=== PATIENT | male | born 1965 | race Caucasian/White ===

== ENCOUNTER 2020-10-17 13:49 | Inpatient (IN) | payer OTHER ==
[2020-10-17] MEDS ORDERED: Ondansetron 4 MG/2 ML SDV IV PRN (14:32)
--- NOTE | 2020-10-17 14:50 | PCM.HP.2 ---
H&P History of Present Illness - General Date of Service: 10/17/20 Admit Problem/Dx: Admission Diagnosis/Problem Admission Diagnosis/Problem Hypoxia Source of Information: Patient, EMS Notes Reviewed, Old Records, Provider, RN, RN Notes Reviewed History Limitations: Reports: No Limitations - History of Present Illness Initial Comments - Free Text/Narative: This is a 55-year-old male who presents to us after being transferred from [facility] and is a direct admission. Patient reports that he had similar symptoms around [facility] and that they had resolved but then returned very rapidly. That time he was never tested for Covid-19. He reports 102 degree fever along with backaches and shortness of breath. He reports his is also Covid positive. In the [place] ER he is 87% on room air. Saturations are increased to 91% on 2 L. Temp was 100.7. Pulse 87. Respirations 22. Blood pressure 142/71. Labs were obtained in [place] showing a WBC of 7.5. Hemoglobin 16.5. Platelets are 168,000. Neutrophils 5.8. Glucose is 88. Sodium 138. Potassium was low at 3.4. Chloride was 97. CO2 was 26. Anion gap is 18. BUN is 13. Creatinine 1.0. Calcium is 8.8. Bilirubin 0.6. Alkaline phosphatase is 84. ALT is 91. AST is 81. Protein is 7.3. Albumin 4.0. EGFR is greater than 90. PT is 13.3. INR 1.0. Blood culture was obtained and is pending. Influenza a and B were both negative. COVID-19 screen is positive. Was given 1 g IV Rocephin and 500 mg azithromycin tablets. Is given 20 mEq potassium chloride. He is also given the 200 mg loading dose of remdesivir and a 6 mg dose of dexamethasone. He started on Lovenox 40 mg and was given a 1 L bolus. Chest x-ray is obtained showing "radiographic findings consistent with Covid pneumonia. Correlation is recommended." Has a history of type II DM, hypertension, sleep apnea with CPAP use. He is a former smoker. He is admitted for treatment of his acute respiratory failure with hypoxia and pneumonia due to COVID-19. - Related Data Allergies/Adverse Reactions: Allergies Allergy/AdvReac Type Severity Reaction Status Date / Time No Known Allergies Allergy Verified 10/17/20 15:58 H&P Review of Systems - Review of Systems: Review Of Systems: See Below General: Reports: Fever, Chills, Malaise, Weakness, Fatigue, Decreased Appetite HEENT: Reports: Sinus Congestion, Sore Throat. Denies: Headaches Pulmonary: Reports: Shortness of Breath, Wheezing, Cough. Denies: Pleuritic Chest Pain, Sputum Cardiovascular: Reports: No Symptoms, Dyspnea on Exertion. Denies: Chest Pain, Palpitations, Orthopnea, Edema, Lightheadedness Gastrointestinal: Reports: No Symptoms. Denies: Abdominal Pain, Constipation, Diarrhea, Nausea, Vomiting Genitourinary: Reports: No Symptoms. Denies: Pain Musculoskeletal: Reports: No Symptoms Skin: Reports: No Symptoms. Denies: Cyanosis Psychiatric: Reports: No Symptoms. Denies: Confusion Neurological: Reports: No Symptoms. Denies: Confusion, Numbness, Tingling, Difficulty Walking, Weakness, Gait Disturbance Hematologic/Lymphatic: Reports: No Symptoms Immunologic: Reports: No Symptoms Exam - Exam Exam: See Below - Exam Quality Assessment: Supplemental Oxygen, DVT Prophylaxis General: Alert, Oriented, Cooperative. No: Mild Distress HEENT: Conjunctiva Clear, EACs Clear, Mucosa Moist & [place] Neck: Supple, Trachea Midline Lungs: Normal Respiratory Effort, Decreased Breath Sounds, Rales Cardiovascular: Regular Rate, Regular Rhythm GI/Abdominal Exam: Normal Bowel Sounds, Soft, Non-Tender, No Distention (Male) Exam: Deferred Rectal (Males) Exam: Deferred Back Exam: Normal Inspection, Full Range of Motion Extremities: Normal Inspection, Normal Range of Motion, Non-Tender, No Pedal Edema, Normal Capillary Refill Peripheral Pulses: 3+: Radial (L), Radial (R), Dorsalis Pedis (L), Dorsalis Pedis (R) Skin: Warm, Dry, Intact Neurological: Cranial Nerves Intact (Grossly ) Neuro Extensive - Mental Status: Alert, Oriented x3, Normal Mood/Affect, Memory Intact - Problem List (1) Pneumonia due to 2019 novel coronavirus SNOMED Code(s): 723257470549162872 ICD Code: U07.1 - COVID-19; J12.89 - OTHER VIRAL PNEUMONIA Status: Acute Priority: High Current Visit: Yes (2) Type II diabetes mellitus SNOMED Code(s): 95760633 ICD Code: E11.9 - TYPE 2 DIABETES MELLITUS WITHOUT COMPLICATIONS Status: Chronic Priority: Medium Current Visit: Yes Qualifiers: Diabetes mellitus intermodal truck driver insulin use: with intermodal truck driver use Diabetes mellitus complication status: without complication Qualified Code(s): E11.9 - Type 2 diabetes mellitus without complications; Z79.4 - manager intermediate (current) use of insulin (3) FREIDA on CPAP SNOMED Code(s): 51467827 ICD Code: G47.33 - OBSTRUCTIVE SLEEP APNEA (ADULT) (PEDIATRIC); Z99.89 - DEPENDENCE ON OTHER ENABLING MACHINES AND DEVICES Status: Chronic Priority: Medium Current Visit: No (4) Hypertension SNOMED Code(s): 56968276 ICD Code: I10 - ESSENTIAL (PRIMARY) HYPERTENSION Status: Chronic Priority: Medium Current Visit: No Qualifiers: Hypertension type: unspecified Qualified Code(s): I10 - Essential (primary) hypertension (5) Hypoxia SNOMED Code(s): 009769749 ICD Code: R09.02 - HYPOXEMIA Status: Acute Priority: High Current Visit: Yes (6) Hypokalemia SNOMED Code(s): 56256448 ICD Code: E87.6 - HYPOKALEMIA Status: Acute Priority: High Current Visit: Yes (7) Anxiety SNOMED Code(s): 72065910 ICD Code: F41.9 - ANXIETY DISORDER, UNSPECIFIED Status: Chronic Priority: Medium Current Visit: No (8) GERD (gastroesophageal reflux disease) SNOMED Code(s): 259295531 ICD Code: K21.9 - GASTRO-ESOPHAGEAL REFLUX DISEASE WITHOUT ESOPHAGITIS Status: Chronic Priority: Medium Current Visit: No Qualifiers: Esophagitis presence: esophagitis presence not specified Qualified Code(s): K21.9 - Gastro-esophageal reflux disease without esophagitis Problem List Initiated/Reviewed/Updated: Yes Orders Last 24hrs: Active Orders 24 hr Category Date Time Status Patient Status [ADT] Routine ADT 10/17/20 14:33 Ordered Blood Glucose Check, Bedside [RC] QIDACANDBED Care 10/17/20 14:41 Ordered CPAP Noctural Home [RT BiPAP/CPAP] [RC] ASDIRECTED Care 10/17/20 14:40 Ordered Cardiac Monitoring [RC] CONTINUOUS Care 10/17/20 14:33 Ordered Height and Weight [RC] DAILY Care 10/17/20 14:32 Ordered Intake and Output [RC] QSHIFT Care 10/17/20 14:33 Ordered Nurse Communication: Isolation [RC] ASDIRECTED Care 10/17/20 14:35 Ordered Oxygen Therapy [RC] PRN Care 10/17/20 14:33 Ordered Pulse Oximetry [RC] CONTINUOUS Care 10/17/20 14:33 Ordered RT Incentive Spirometry [RC] ASDIRECTED Care 10/17/20 14:35 Ordered Up With Assistance [RC] ASDIRECTED Care 10/17/20 14:32 Ordered VTE/DVT Education [RC] PER UNIT ROUTINE Care 10/17/20 14:33 Ordered Vital Signs [RC] Q4H Care 10/17/20 14:33 Ordered OT Evaluation and Treatment [CONS] Routine Cons 10/17/20 14:32 Ordered PT Evaluation and Treatment [CONS] Routine Cons 10/17/20 14:32 Ordered Respiratory Care Assess and Treatment [CONS] Routine Cons 10/17/20 14:32 Ordered ADA Diabetic [[employer] Diet] [DIET Diet 10/17/20 Lunch Ordered ] A1C [GLYCOSYLATED HEMOGLOBIN,HGBA1C] [CHEM] Routine Lab 10/17/20 14:42 Ordered CBC WITH AUTO DIFF [HEME] AM Lab 10/18/20 05:11 Ordered CBC WITH AUTO DIFF [HEME] AM Lab 10/19/20 05:11 Ordered CBC WITH AUTO DIFF [HEME] AM Lab 10/20/20 05:11 Ordered CBC WITH AUTO DIFF [HEME] AM Lab 10/21/20 05:11 Ordered CMP [COMPREHENSIVE METABOLIC PN,CMP] [CHEM] AM Lab 10/18/20 05:11 Ordered CMP [COMPREHENSIVE METABOLIC PN,CMP] [CHEM] AM Lab 10/19/20 05:11 Ordered CMP [COMPREHENSIVE METABOLIC PN,CMP] [CHEM] AM Lab 10/20/20 05:11 Ordered CMP [COMPREHENSIVE METABOLIC PN,CMP] [CHEM] AM Lab 10/21/20 05:11 Ordered DD [D-DIMER QUANTITATIVE] [COAG] Routine Lab 10/17/20 14:39 Ordered FERRITIN [CHEM] Routine Lab 10/17/20 14:39 Ordered LACTATE DEHYDROGENASE,LDH [CHEM] Routine Lab 10/17/20 14:39 Ordered MAGNESIUM [CHEM] AM Lab 10/18/20 05:11 Ordered MAGNESIUM [CHEM] AM Lab 10/19/20 05:11 Ordered MAGNESIUM [CHEM] AM Lab 10/20/20 05:11 Ordered MAGNESIUM [CHEM] AM Lab 10/21/20 05:11 Ordered PHOSPHORUS [CHEM] AM Lab 10/18/20 05:11 Ordered PROCALCITONIN [REF] Routine Lab 10/17/20 14:39 Ordered Acetaminophen [TylenoL] Med 10/17/20 14:32 Ordered 650 mg PO Q4H PRN Azithromycin [Zithromax] Med 10/18/20 11:30 Ordered 500 mg PO DAILY Famotidine [Pepcid] Med 10/17/20 21:00 Ordered 20 mg PO BID Insulin Lispro [HumaLOG] Med 10/17/20 17:00 Ordered See Protocol SUBCUT QIDACANDBED Ondansetron [Zofran] Med 10/17/20 14:32 Ordered 4 mg IV Q6H PRN Remdesivir 100 mg Med 10/18/20 09:00 Ordered Sodium Chloride 0.9% [Normal Saline] 100 ml IV DAILY cefTRIAXone [Rocephin] 2 gm Med 10/18/20 11:30 Ordered Sodium Chloride 0.9% [Normal Saline] 100 ml IV Q24H dexAMETHasone Med 10/18/20 09:00 Ordered 6 mg PO DAILY Isolation [COMM] Stat Oth 10/17/20 14:35 Ordered RT Acapella [RESPCARE] Routine Oth 10/17/20 14:35 Ordered Medication Orders Acetaminophen (Tylenol) 650 mg PO Q4H PRN PRN Reason: Pain (Mild 1-3)/fever Azithromycin (Zithromax) 500 mg PO DAILY [facility] Stop: 10/19/20 09:01 Dexamethasone (Dexamethasone) 6 mg PO DAILY [facility] Stop: 10/26/20 09:01 Famotidine (Pepcid) 20 mg PO BID [facility] Remdesivir 100 mg/ Sodium (Chloride) 100 mls @ 100 mls/hr IV DAILY [facility] Stop: 10/21/20 09:59 Ceftriaxone Sodium 2 gm/ (Sodium Chloride) 100 mls @ 200 mls/hr IV Q24H [facility] Stop: 10/21/20 11:59 Insulin Human Lispro (Humalog) 0 unit SUBCUT QIDACANDBED [facility]; Protocol Ondansetron HCl (Zofran) 4 mg IV Q6H PRN PRN Reason: Nausea/Vomiting Assessment/Plan Comment:: Assessment - Day of admission - 10/17/2020 * 55 yo male who was direct admit from [place] ED with COVID-19 PNA * Reports symptoms around Thanksgiving that resolved and now returned. Was not tested then. * Reports SOB, back aches, fever, and decreased appetite. Fevers of 102-104 * Oxygen saturations of 87% in ED. 90's on 4L now * Given 200 mg remdesivir, 6mg dexamethasone, 1gm rocephin, 500mg azithromycin, 40mg lovenox, and 1L fluid bolus in [facility] ED * Potassium 20 mEq supplemented in [facility] * Utilized CPAP for FREIDA - has been using more during day due to SOB * Labs from [facility] ED: * WBC 7.50 * Hgb 16.5 * Plt 168 * Glucose 88 * Sodium 138 * Potassium 3.4 * Chloride 97 * Anion gap 18 * BUN 13 * Creatinine 1.0 * GFR >90 * Bilirubin 0.6 * Alk phos 84 * ALT 91 * AST 81 * Protein 7.3 * Albumin 4.0 * PT/INR 13.3/1.0 * Blood cultures pending * CRP 22.4 * Influenza A/B - negative * SARS-COV-2 RNA - positive PLAN: Pneumonia due to 2019 novel coronavirus Hypoxia * Remdesivir - day 11/11 * Dexamethasone 6mg - day 11/16 * Rocephin 2gm - day 11/11 * Azithromycin 500mg - Day 11/09 * IS/Acapella * Encourage proning * RT consultation * PRN Albuterol via [facility] * Oxygen as needed - goal saturations of 88-94% * Encourage ambulation around room * Airborne/droplet precautions * PT/OT eval * Telemetry/continuous pulse oximeter * Obtain D-Dimer, Procalcitonin, Ferritin, LDH, Vitamin D * Monitor daily labs * Obtain baseline 12-lead EKG Type II diabetes mellitus * Hold home metformin * Sliding scale insulin * Obtain A1C * Diabetic diet * Monitor need for insulin adjustments as patient is on steroids * Start Alogliptin 12.5mg daily FREIDA on CPAP * Patient has home CPAP * Continue CPAP at bedtime and when napping Hypertension Anxiety GERD * Home medications as ordered Code status: Full code PCP: None locally Social: Lives with who also has COVID-19 DVT prophylaxis: Lovenox Disposition: Admit patient to M/S/P on telemetry for COVID-19/hypoxia treatment Prognosis: Good Anticipated LOS >96 Hr due to COVID-19 treatment duration - Mortality Measure Prognosis:: Good
[2020-10-17] MEDS ORDERED: Albuterol 6.7 GM Inhaler INH PRN (14:52)
[2020-10-17 15:42] LABS: HEMOGLOBIN A1C 8.2 % (4.50-6.20)
[2020-10-17] MEDS ORDERED: LORazepam 1 MG Tab PO PRN (17:17)
[2020-10-17] MEDS: Acetaminophen 325 MG Tab PO PRN (18:57)
[2020-10-17] MEDS ORDERED: CETIRIZINE PO SCH (21:00)
[2020-10-17] MEDS: Metoprolol Tartrate 100 MG Tab PO SCH (22:07)
[2020-10-17] MEDS: diphenhydrAMINE 50 MG Cap PO SCH (22:07)
[2020-10-17] MEDS: Famotidine 20 MG Tab PO SCH (22:09)
[2020-10-18] MEDS: Aspirin 325 MG Tab.EC PO SCH (08:20)
[2020-10-18] MEDS: Dexamethasone 4 MG Tab PO SCH (08:20)
[2020-10-18] MEDS: Hydrochlorothiazide 25 MG Tab PO SCH (08:21)
[2020-10-18] MEDS: amLODIPine 10 MG Tab PO SCH (08:21)
[2020-10-18] MEDS: Metoprolol Tartrate 100 MG Tab PO SCH ×2 (08:22→21:35)
[2020-10-18] MEDS: Rosuvastatin 10 MG Tab PO SCH (08:22)
[2020-10-18] MEDS: Multivitamins,Therapeutic Tab PO SCH (08:23)
[2020-10-18] MEDS: Saccharomyces Boulardii (Probiotic) 250 MG Cap PO SCH (08:23)
[2020-10-18] MEDS: Famotidine 20 MG Tab PO SCH ×2 (08:24→21:35)
--- NOTE | 2020-10-18 08:24 | PCM.PN ---
- General Info Date of Service: 10/18/20 Admission Dx/Problem (Free Text): Admission Diagnosis/Problem Admission Diagnosis/Problem Hypoxia Subjective Update: In to se Baumann. He reports he is doing very well. He has been up ambulating around the room and utilizing his IS and acapella. His blood glucose readings were a bit high today so will increase his lantus and monitor. He is down to 4L via NC. Continue current treatment plan. Functional Status: Reports: Pain Controlled, Tolerating Diet, Ambulating, Urinating, Incentive Spirometry, Other (acapella ). Denies: New Symptoms - Review of Systems General: Reports: No Symptoms. Denies: Fever, Weakness, Fatigue, Malaise, Chills HEENT: Reports: No Symptoms. Denies: Headaches, Sore Throat Pulmonary: Reports: Shortness of Breath, Cough. Denies: Pleuritic Chest Pain, Sputum, Wheezing Cardiovascular: Reports: No Symptoms, Dyspnea on Exertion. Denies: Chest Pain, Palpitations, Edema Gastrointestinal: Reports: No Symptoms. Denies: Abdominal Pain, Constipation, Diarrhea, Nausea, Vomiting Genitourinary: Reports: No Symptoms. Denies: Pain Musculoskeletal: Reports: No Symptoms Skin: Reports: No Symptoms. Denies: Cyanosis Neurological: Reports: No Symptoms. Denies: Confusion, Difficulty Walking, Gait Disturbance Psychiatric: Reports: No Symptoms - Patient Data Vitals - Most Recent: Last Vital Signs Temp 98.8 F 10/18/20 05:11 Pulse 65 10/18/20 05:11 Resp 16 10/18/20 05:11 BP 140/98 H 10/18/20 05:11 Pulse Ox 95 10/18/20 05:11 Weight - Most Recent: 263 lb I&O - Last 24 Hours: Intake & Output 10/17/20 10/18/20 10/18/20 22:59 06:59 14:59 Intake Total 480 2400 Output Total 2500 Balance 480 -100 Lab Results Last 24 Hours: Laboratory Results - last 24 hr 10/17/20 10/17/20 10/17/20 Range/Units 15:15 15:15 15:15 WBC (4.23-9.07) K/mm3 RBC (4.63-6.08) M/mm3 Hgb (13.7-17.5) gm/dl Hct (40.1-51.0) % MCV (79.0-92.2) fl MCH (25.7-32.2) pg MCHC (32.2-35.5) g/dl RDW Std Deviation (35.1-43.9) fL Plt Count (163-337) K/mm3 MPV (9.4-12.3) fl Neut % (Auto) (34.0-67.9) % Lymph % (Auto) (21.8-53.1) % Iron % (Auto) (5.3-12.2) % Eos % (Auto) (0.8-7.0) Baso % (Auto) (0.1-1.2) % Neut # (Auto) (1.78-5.38) K/mm3 Lymph # (Auto) (1.32-3.57) K/mm3 Iron # (Auto) (0.30-0.82) K/mm3 Eos # (Auto) (0.04-0.54) K/mm3 Baso # (Auto) (0.01-0.08) K/mm3 Fibrinogen (187-446) mg/dL D-Dimer, Quantitative 0.44 (0.19-0.50) mg/L Sodium (136-145) mEq/L Potassium (3.5-5.1) mEq/L Chloride (98-107) mEq/L Carbon Dioxide (21-32) mEq/L Anion Gap (5-15) BUN (7-18) mg/dL Creatinine (0.7-1.3) mg/dL Est Cr Clr Drug Dosing mL/min Estimated GFR (MDRD) (>60) mL/min BUN/Creatinine Ratio (14-18) Glucose (74-106) mg/dL POC Glucose (70-105) mg/dL Hemoglobin A1c (4.50-6.20) % Calcium (8.5-10.1) mg/dL Phosphorus (2.6-4.7) mg/dL Magnesium (1.8-2.4) mg/dl Ferritin 212 (26-388) ng/ml Total Bilirubin (0.2-1.0) mg/dL AST (15-37) U/L ALT (16-63) U/L Alkaline Phosphatase (46-116) U/L Lactate Dehydrogenase 267 H (85-227) U/L Troponin I (0.00-0.056) ng/mL NT-Pro-B Natriuret Pep (0-125) pg/mL Total Protein (6.4-8.2) g/dl Albumin (3.4-5.0) g/dl Globulin gm/dL Albumin/Globulin Ratio (1-2) Vitamin D 25-Hydroxy (30.0-100.0) ng/ml 10/17/20 10/17/20 10/17/20 Range/Units 15:15 15:15 21:48 WBC (4.23-9.07) K/mm3 RBC (4.63-6.08) M/mm3 Hgb (13.7-17.5) gm/dl Hct (40.1-51.0) % MCV (79.0-92.2) fl MCH (25.7-32.2) pg MCHC (32.2-35.5) g/dl RDW Std Deviation (35.1-43.9) fL Plt Count (163-337) K/mm3 MPV (9.4-12.3) fl Neut % (Auto) (34.0-67.9) % Lymph % (Auto) (21.8-53.1) % Iron % (Auto) (5.3-12.2) % Eos % (Auto) (0.8-7.0) Baso % (Auto) (0.1-1.2) % Neut # (Auto) (1.78-5.38) K/mm3 Lymph # (Auto) (1.32-3.57) K/mm3 Iron # (Auto) (0.30-0.82) K/mm3 Eos # (Auto) (0.04-0.54) K/mm3 Baso # (Auto) (0.01-0.08) K/mm3 Fibrinogen (187-446) mg/dL D-Dimer, Quantitative (0.19-0.50) mg/L Sodium (136-145) mEq/L Potassium (3.5-5.1) mEq/L Chloride (98-107) mEq/L Carbon Dioxide (21-32) mEq/L Anion Gap (5-15) BUN (7-18) mg/dL Creatinine (0.7-1.3) mg/dL Est Cr Clr Drug Dosing mL/min Estimated GFR (MDRD) (>60) mL/min BUN/Creatinine Ratio (14-18) Glucose (74-106) mg/dL POC Glucose 230 H (70-105) mg/dL Hemoglobin A1c 8.20 H (4.50-6.20) % Calcium (8.5-10.1) mg/dL Phosphorus (2.6-4.7) mg/dL Magnesium (1.8-2.4) mg/dl Ferritin (26-388) ng/ml Total Bilirubin (0.2-1.0) mg/dL AST (15-37) U/L ALT (16-63) U/L Alkaline Phosphatase (46-116) U/L Lactate Dehydrogenase (85-227) U/L Troponin I (0.00-0.056) ng/mL NT-Pro-B Natriuret Pep (0-125) pg/mL Total Protein (6.4-8.2) g/dl Albumin (3.4-5.0) g/dl Globulin gm/dL Albumin/Globulin Ratio (1-2) Vitamin D 25-Hydroxy 30.6 (30.0-100.0) ng/ml 10/18/20 10/18/20 10/18/20 Range/Units 04:22 04:22 04:22 WBC 7.70 (4.23-9.07) K/mm3 RBC 5.48 (4.63-6.08) M/mm3 Hgb 15.3 (13.7-17.5) gm/dl Hct 47.0 (40.1-51.0) % MCV 85.8 (79.0-92.2) fl MCH 27.9 (25.7-32.2) pg MCHC 32.6 (32.2-35.5) g/dl RDW Std Deviation 43.2 (35.1-43.9) fL Plt Count 177 (163-337) K/mm3 MPV 10.3 (9.4-12.3) fl Neut % (Auto) 77.2 H (34.0-67.9) % Lymph % (Auto) 12.2 L (21.8-53.1) % Iron % (Auto) 10.4 (5.3-12.2) % Eos % (Auto) 0 L (0.8-7.0) Baso % (Auto) 0.1 (0.1-1.2) % Neut # (Auto) 5.94 H (1.78-5.38) K/mm3 Lymph # (Auto) 0.94 L (1.32-3.57) K/mm3 Iron # (Auto) 0.80 (0.30-0.82) K/mm3 Eos # (Auto) 0.00 L (0.04-0.54) K/mm3 Baso # (Auto) 0.01 (0.01-0.08) K/mm3 Fibrinogen (187-446) mg/dL D-Dimer, Quantitative (0.19-0.50) mg/L Sodium 137 (136-145) mEq/L Potassium 3.7 (3.5-5.1) mEq/L Chloride 100 (98-107) mEq/L Carbon Dioxide 29 (21-32) mEq/L Anion Gap 11.7 (5-15) BUN 15 (7-18) mg/dL Creatinine 0.9 (0.7-1.3) mg/dL Est Cr Clr Drug Dosing 96.45 mL/min Estimated GFR (MDRD) > 60 (>60) mL/min BUN/Creatinine Ratio 16.7 (14-18) Glucose 197 H (74-106) mg/dL POC Glucose (70-105) mg/dL Hemoglobin A1c (4.50-6.20) % Calcium 8.5 (8.5-10.1) mg/dL Phosphorus 4.2 (2.6-4.7) mg/dL Magnesium 2.1 (1.8-2.4) mg/dl Ferritin (26-388) ng/ml Total Bilirubin 0.5 (0.2-1.0) mg/dL AST 53 H (15-37) U/L ALT 82 H (16-63) U/L Alkaline Phosphatase 71 (46-116) U/L Lactate Dehydrogenase (85-227) U/L Troponin I < 0.017 (0.00-0.056) ng/mL NT-Pro-B Natriuret Pep 212 H (0-125) pg/mL Total Protein 6.9 (6.4-8.2) g/dl Albumin 2.9 L (3.4-5.0) g/dl Globulin 4.0 gm/dL Albumin/Globulin Ratio 0.7 L (1-2) Vitamin D 25-Hydroxy (30.0-100.0) ng/ml 10/18/20 10/18/20 Range/Units 04:22 05:16 WBC (4.23-9.07) K/mm3 RBC (4.63-6.08) M/mm3 Hgb (13.7-17.5) gm/dl Hct (40.1-51.0) % MCV (79.0-92.2) fl MCH (25.7-32.2) pg MCHC (32.2-35.5) g/dl RDW Std Deviation (35.1-43.9) fL Plt Count (163-337) K/mm3 MPV (9.4-12.3) fl Neut % (Auto) (34.0-67.9) % Lymph % (Auto) (21.8-53.1) % Iron % (Auto) (5.3-12.2) % Eos % (Auto) (0.8-7.0) Baso % (Auto) (0.1-1.2) % Neut # (Auto) (1.78-5.38) K/mm3 Lymph # (Auto) (1.32-3.57) K/mm3 Iron # (Auto) (0.30-0.82) K/mm3 Eos # (Auto) (0.04-0.54) K/mm3 Baso # (Auto) (0.01-0.08) K/mm3 Fibrinogen 613 H (187-446) mg/dL D-Dimer, Quantitative (0.19-0.50) mg/L Sodium (136-145) mEq/L Potassium (3.5-5.1) mEq/L Chloride (98-107) mEq/L Carbon Dioxide (21-32) mEq/L Anion Gap (5-15) BUN (7-18) mg/dL Creatinine (0.7-1.3) mg/dL Est Cr Clr Drug Dosing mL/min Estimated GFR (MDRD) (>60) mL/min BUN/Creatinine Ratio (14-18) Glucose (74-106) mg/dL POC Glucose 196 H (70-105) mg/dL Hemoglobin A1c (4.50-6.20) % Calcium (8.5-10.1) mg/dL Phosphorus (2.6-4.7) mg/dL Magnesium (1.8-2.4) mg/dl Ferritin (26-388) ng/ml Total Bilirubin (0.2-1.0) mg/dL AST (15-37) U/L ALT (16-63) U/L Alkaline Phosphatase (46-116) U/L Lactate Dehydrogenase (85-227) U/L Troponin I (0.00-0.056) ng/mL NT-Pro-B Natriuret Pep (0-125) pg/mL Total Protein (6.4-8.2) g/dl Albumin (3.4-5.0) g/dl Globulin gm/dL Albumin/Globulin Ratio (1-2) Vitamin D 25-Hydroxy (30.0-100.0) ng/ml Med Orders - Current: Current Medications Acetaminophen (Tylenol) 650 mg PO Q4H PRN PRN Reason: Pain (Mild 1-3)/fever Last Admin: 10/17/20 18:57 Dose: 650 mg Documented by: Albuterol (Proventil Hfa) 0 gm INH Q2H PRN PRN Reason: Shortness of Breath Alogliptin Benzoate (Alogliptin) 12.5 mg PO DAILY [facility] Amlodipine Besylate (Norvasc) 10 mg PO DAILY [facility] Aspirin (Ecotrin) 325 mg PO DAILY [facility] Azithromycin (Zithromax) 500 mg PO DAILY@1130 [facility] Stop: 10/19/20 11:31 Dexamethasone (Dexamethasone) 6 mg PO DAILY [facility] Stop: 10/26/20 09:01 Diphenhydramine HCl (Benadryl) 100 mg PO BEDTIME [facility] Last Admin: 10/17/20 22:07 Dose: 100 mg Documented by: Enoxaparin Sodium (Lovenox) 40 mg SUBCUT DAILY [facility] Famotidine (Pepcid) 20 mg PO BID [facility] Last Admin: 10/17/20 22:09 Dose: 20 mg Documented by: Hydrochlorothiazide (Hydrochlorothiazide) 25 mg PO DAILY [facility] Remdesivir 100 mg/ Sodium (Chloride) 100 mls @ 100 mls/hr IV DAILY [facility] Stop: 10/21/20 09:59 Ceftriaxone Sodium 2 gm/ (Sodium Chloride) 100 mls @ 200 mls/hr IV Q24H [facility] Stop: 10/21/20 11:59 Influenza Virus Vaccine (Fluzone Quad Syringe) 60 mcg IM .ONCE ONE Stop: 10/21/20 12:01 Insulin Glargine (Lantus) 20 unit SUBCUT BID [facility] Insulin Human Lispro (Humalog) 0 unit SUBCUT QIDACANDBED [facility]; Protocol Last Admin: 10/17/20 22:09 Dose: 4 units Documented by: Lorazepam (Ativan) 1 mg PO QID PRN PRN Reason: Anxiety Metoprolol Tartrate (Lopressor) 100 mg PO BID [facility] Last Admin: 10/17/20 22:07 Dose: 100 mg Documented by: Multivitamins (Thera) 1 each PO DAILY [facility] Non-Formulary Medication (Cetirizine Hcl [Zyrtec]) 25 mg PO BEDTIME [facility] Ondansetron HCl (Zofran) 4 mg IV Q6H PRN PRN Reason: Nausea/Vomiting Rosuvastatin Calcium (Crestor) 10 mg PO DAILY [facility] Saccharomyces Boulardii (Florastor) 250 mg PO DAILY [facility] Discontinued Medications Influenza Virus Vaccine (Pharmacy To Dose - Influenza Vaccine) 1 each IM ONETIME ONE Stop: 10/17/20 15:58 - Exam Quality Assessment: Supplemental Oxygen (4L via NC ), DVT Prophylaxis. No: Urine Catheter General: Alert, Oriented, Cooperative, No Acute Distress HEENT: Pupils Equal, Pupils Reactive, Mucous Membr. Moist/Dyess Neck: Supple, Trachea Midline Lungs: Normal Respiratory Effort, Decreased Breath Sounds. No: Crackles, Rhonchi, Wheezing Cardiovascular: Regular Rate, Regular Rhythm GI/Abdominal Exam: Normal Bowel Sounds, Soft, Non-Tender, No Distention (Male) Exam: Deferred Back Exam: Normal Inspection, Full Range of Motion Extremities: Normal Inspection, Normal Range of Motion, Non-Tender, No Pedal Edema Skin: Warm, Dry, Intact Neurological: No New Focal Deficit Psy/Mental Status: Alert, Normal Affect, Normal Mood Sepsis Event Note - Evaluation Sepsis Screening Result: No Definite Risk - Focused Exam Vital Signs: Vital Signs Temp Pulse Resp BP Pulse Ox 10/18/20 05:11 98.8 F 65 16 140/98 H 95 10/18/20 01:58 98.2 F 64 16 101/71 97 10/17/20 22:09 72 118/58 L 96 10/17/20 22:07 75 118/58 L - Problem List & Annotations (1) Pneumonia due to 2019 novel coronavirus SNOMED Code(s): 527592511818352112 Code(s): U07.1 - COVID-19; J12.89 - OTHER VIRAL PNEUMONIA Status: Acute Priority: High Current Visit: Yes (2) Type II diabetes mellitus SNOMED Code(s): 04562867 Code(s): E11.9 - TYPE 2 DIABETES MELLITUS WITHOUT COMPLICATIONS Status: Chronic Priority: Medium Current Visit: Yes Qualifiers: Diabetes mellitus termite control service representative insulin use: with half-way use Diabetes mellitus complication status: without complication Qualified Code(s): E11.9 - Type 2 diabetes mellitus without complications; Z79.4 - skilled nursing (current) use of insulin (3) FREIDA on CPAP SNOMED Code(s): 51397384 Code(s): G47.33 - OBSTRUCTIVE SLEEP APNEA (ADULT) (PEDIATRIC); Z99.89 - DEPENDENCE ON OTHER ENABLING MACHINES AND DEVICES Status: Chronic Priority: Medium Current Visit: No (4) Hypertension SNOMED Code(s): 28171067 Code(s): I10 - ESSENTIAL (PRIMARY) HYPERTENSION Status: Chronic Priority: Medium Current Visit: No Qualifiers: Hypertension type: unspecified Qualified Code(s): I10 - Essential (primary) hypertension (5) Hypoxia SNOMED Code(s): 202328298 Code(s): R09.02 - HYPOXEMIA Status: Acute Priority: High Current Visit: Yes (6) Hypokalemia SNOMED Code(s): 79237634 Code(s): E87.6 - HYPOKALEMIA Status: Acute Priority: High Current Visit: Yes (7) Anxiety SNOMED Code(s): 40956905 Code(s): F41.9 - ANXIETY DISORDER, UNSPECIFIED Status: Chronic Priority: Medium Current Visit: No (8) GERD (gastroesophageal reflux disease) SNOMED Code(s): 412103986 Code(s): K21.9 - GASTRO-ESOPHAGEAL REFLUX DISEASE WITHOUT ESOPHAGITIS Status: Chronic Priority: Medium Current Visit: No Qualifiers: Esophagitis presence: esophagitis presence not specified Qualified Code(s): K21.9 - Gastro-esophageal reflux disease without esophagitis - Problem List Review Problem List Initiated/Reviewed/Updated: Yes - My Orders Last 24 Hours: My Active Orders 10/17/20 Lunch ADA Diabetic [[employer] Diet] [DIET] 10/17/20 14:32 Height and Weight [RC] 04 Up With Assistance [RC] BID OT Evaluation and Treatment [CONS] Routine PT Evaluation and Treatment [CONS] Routine Respiratory Care Assess and Treatment [CONS] Routine Acetaminophen [TylenoL] 650 mg PO Q4H PRN Ondansetron [Zofran] 4 mg IV Q6H PRN 10/17/20 14:33 Patient Status [ADT] Routine Intake and Output [RC] 04,16 Oxygen Therapy [RC] PRN Pulse Oximetry [RC] CONTINUOUS VTE/DVT Education [RC] PER UNIT ROUTINE Vital Signs [RC] Q4H 10/17/20 14:35 RT Incentive Spirometry [RC] ASDIRECTED Isolation [COMM] Stat RT Acapella [RESPCARE] Routine 10/17/20 14:40 CPAP Noctural Home [RT BiPAP/CPAP] [RC] 2100 10/17/20 14:41 Blood Glucose Check, Bedside [RC] QIDACANDBED 10/17/20 14:51 Positioning, Patient [RC] QSHIFT 10/17/20 14:52 Albuterol [Proventil HFA] See Dose Instructions INH Q2H PRN 10/17/20 15:15 PROCALCITONIN [REF] Routine 10/17/20 17:00 Insulin Lispro [HumaLOG] See Protocol SUBCUT QIDACANDBED 10/17/20 17:17 LORazepam [Ativan] 1 mg PO QID PRN 10/17/20 21:00 Cetirizine HCl [Zyrtec] 25 mg PO BEDTIME Famotidine [Pepcid] 20 mg PO BID Metoprolol Tartrate [Lopressor] 100 mg PO BID diphenhydrAMINE [Benadryl] 100 mg PO BEDTIME 10/18/20 09:00 Alogliptin Benzoate [Alogliptin] 12.5 mg PO DAILY Aspirin [Ecotrin] 325 mg PO DAILY Enoxaparin [Lovenox] 40 mg SUBCUT DAILY Insulin Glarg,Human.Rec.Analog [LantUS] 20 unit SUBCUT BID Multivitamins,Therapeutic [Thera] 1 each PO DAILY Remdesivir 100 mg Sodium Chloride 0.9% [Normal Saline] 100 ml IV DAILY Rosuvastatin [Crestor] 10 mg PO DAILY Saccharomyces Boulardii [Florastor] 250 mg PO DAILY amLODIPine [Norvasc] 10 mg PO DAILY dexAMETHasone 6 mg PO DAILY hydroCHLOROthiazide 25 mg PO DAILY 10/18/20 11:30 Azithromycin [Zithromax] 500 mg PO DAILY@1130 cefTRIAXone [Rocephin] 2 gm Sodium Chloride 0.9% [Normal Saline] 100 ml IV Q24H 10/19/20 05:11 CBC WITH AUTO DIFF [HEME] AM CMP [COMPREHENSIVE METABOLIC PN,CMP] [CHEM] AM DD [D-DIMER QUANTITATIVE] [COAG] Q48H MAGNESIUM [CHEM] AM 10/20/20 05:11 CBC WITH AUTO DIFF [HEME] AM CMP [COMPREHENSIVE METABOLIC PN,CMP] [CHEM] AM MAGNESIUM [CHEM] AM 10/21/20 05:11 CBC WITH AUTO DIFF [HEME] AM CMP [COMPREHENSIVE METABOLIC PN,CMP] [CHEM] AM DD [D-DIMER QUANTITATIVE] [COAG] Q48H MAGNESIUM [CHEM] AM 10/23/20 05:11 DD [D-DIMER QUANTITATIVE] [COAG] Q48H - Assessment Assessment:: Assessment - Day of admission - 10/17/2020 * 55 yo male who was direct admit from [place] ED with COVID-19 PNA * Reports symptoms around gi that resolved and now returned. Was not tested then. * Reports SOB, back aches, fever, and decreased appetite. Fevers of 102-104 * Oxygen saturations of 87% in ED. 90's on 4L now * Given 200 mg remdesivir, 6mg dexamethasone, 1gm rocephin, 500mg azithromycin, 40mg lovenox, and 1L fluid bolus in [facility] ED * Potassium 20 mEq supplemented in [facility] * Utilized CPAP for FREIDA - has been using more during day due to SOB * Labs from [facility] ED: * WBC 7.50 * Hgb 16.5 * Plt 168 * Glucose 88 * Sodium 138 * Potassium 3.4 * Chloride 97 * Anion gap 18 * BUN 13 * Creatinine 1.0 * GFR >90 * Bilirubin 0.6 * Alk phos 84 * ALT 91 * AST 81 * Protein 7.3 * Albumin 4.0 * PT/INR 13.3/1.0 * Blood cultures pending * CRP 22.4 * Influenza A/B - negative * SARS-COV-2 RNA - positive 10/18/2020 * Down to 4L via NC * Reports he feels good but can tell he is SOB if he takes his oxygen off * Utilizing home CPAP while sleeping * Labs: * WBC 7.70 * HGB 15.3 * PLT 177 * Fibrinogen 613 * Potassium 3.7 * A1C 8.20 A * ST53, ALT 82, Alk Phos 71 * Troponin <0.017 * BNP 212 * Albumin 2.9 * Vitamin D 30.6 * LDH 267 * Ferritin 212 * D-dimer 0.44 * Procalcitonin 0.09 * Continuing current treatment plan - Plan Plan:: Pneumonia due to 2019 novel coronavirus Hypoxia * Remdesivir - day 12/12 * Dexamethasone 6mg - day 12/17 * Rocephin 2gm - day 12/12 * Azithromycin 500mg - Day 12/10 * IS/Acapella * Encourage proning * RT consultation * PRN Albuterol via [facility]I * Oxygen as needed - goal saturations of 88-94% * Encourage ambulation around room * Airborne/droplet precautions * PT/OT eval * Telemetry/continuous pulse oximeter * Monitor daily labs * Obtain baseline 12-lead EKG Type II diabetes mellitus * Hold home metformin * Sliding scale insulin * Diabetic diet * Monitor need for insulin adjustments as patient is on steroids * Start Alogliptin 12.5mg daily * Increase doing of LA insulin * Consult behavioral scientist FREIDA on CPAP * Patient has home CPAP * Continue CPAP at bedtime and when napping Hypertension Anxiety GERD * Home medications as ordered Code status: Full code PCP: None locally Social: Lives with who also has COVID-19 DVT prophylaxis: Lovenox Disposition: Admit patient to M/S/P on telemetry for COVID-19/hypoxia treatment Prognosis: Good Anticipated LOS >96 Hr due to COVID-19 treatment duration
[2020-10-18] MEDS: Enoxaparin 40 MG/0.4 ML Syringe SUBCUT SCH (08:27)
[2020-10-18] MEDS: REMDESIVIR 100 MG in Sodium Chloride 0.9% 100 ML IV SCH (08:58)
[2020-10-18] MEDS ORDERED: Insulin Glarg,Human.Rec.Analog 100 Unit/ML SUBCUT SCH (09:00)
[2020-10-18] MEDS: Acetaminophen 325 MG Tab PO PRN ×2 (09:02→21:35)
[2020-10-18] MEDS: Azithromycin 250 MG Tab PO SCH (12:24)
[2020-10-18] MEDS: cefTRIAXone 2 GM in Sodium Chloride 0.9% 100 ML IV SCH (12:24)
[2020-10-18] MEDS: diphenhydrAMINE 50 MG Cap PO SCH (21:35)
[2020-10-18] MEDS: Insulin Glarg,Human.Rec.Analog 100 Unit/ML SUBCUT SCH (21:36)
[2020-10-19] MEDS: Insulin Glarg,Human.Rec.Analog 100 Unit/ML SUBCUT SCH ×2 (08:09→21:29)
[2020-10-19] MEDS: Enoxaparin 40 MG/0.4 ML Syringe SUBCUT SCH (08:10)
[2020-10-19] MEDS: Dexamethasone 4 MG Tab PO SCH (08:11)
[2020-10-19] MEDS: Saccharomyces Boulardii (Probiotic) 250 MG Cap PO SCH (08:11)
[2020-10-19] MEDS: Famotidine 20 MG Tab PO SCH ×2 (08:11→21:28)
[2020-10-19] MEDS: Multivitamins,Therapeutic Tab PO SCH (08:12)
[2020-10-19] MEDS: Aspirin 325 MG Tab.EC PO SCH (08:12)
[2020-10-19] MEDS: Rosuvastatin 10 MG Tab PO SCH (08:12)
[2020-10-19] MEDS: Metoprolol Tartrate 100 MG Tab PO SCH ×2 (08:13→21:27)
[2020-10-19] MEDS: amLODIPine 10 MG Tab PO SCH (08:13)
[2020-10-19] MEDS: Hydrochlorothiazide 25 MG Tab PO SCH (08:13)
[2020-10-19] MEDS: Acetaminophen 325 MG Tab PO PRN (09:02)
[2020-10-19] MEDS: REMDESIVIR 100 MG in Sodium Chloride 0.9% 100 ML IV SCH (09:03)
--- NOTE | 2020-10-19 09:48 | PCM.PN ---
- General Info Date of Service: 10/19/20 Admission Dx/Problem (Free Text): Admission Diagnosis/Problem Admission Diagnosis/Problem Hypoxia Subjective Update: In to see Pastor. He reports he feels pretty good and has been up ambulating and utilizing his IS/Acapella. He reports a longstanding history of anxiety and that he has been on PRN ativan for quite sometime. He states he has been utilizing it more and more but would like to stop. He states he feels pretty anxious at the moment. Will give 1mg PO ativan now and consult Dr. Huntley for further management, as patient reports he has tried several medications with no success. Otherwise, he continues to do well. Labs are stable. Remains on 4L oxygen. Blood sugars have been elevates so will increase LA insulin Functional Status: Reports: Pain Controlled, Tolerating Diet, Ambulating, Uri nating, Incentive Spirometry, Other (Acapella ). Denies: New Symptoms - Review of Systems General: Reports: No Symptoms. Denies: Fever, Weakness, Fatigue, Malaise, Chills HEENT: Reports: No Symptoms. Denies: Headaches, Sore Throat Pulmonary: Reports: No Symptoms, Shortness of Breath, Cough. Denies: Sputum, Wheezing Cardiovascular: Reports: No Symptoms, Dyspnea on Exertion. Denies: Chest Pain, Palpitations, Edema Gastrointestinal: Reports: No Symptoms. Denies: Abdominal Pain, Constipation, Diarrhea, Nausea, Vomiting Genitourinary: Reports: No Symptoms. Denies: Pain Musculoskeletal: Reports: No Symptoms Skin: Reports: No Symptoms. Denies: Cyanosis Neurological: Reports: No Symptoms. Denies: Confusion, Pre-Existing Deficit, Difficulty Walking, Weakness Psychiatric: Reports: Anxiety. Denies: Depression, Mood Lability, Agitation - Patient Data Vitals - Most Recent: Last Vital Signs Temp 98.2 F 10/19/20 06:27 Pulse 62 10/19/20 08:13 Resp 16 10/19/20 01:24 BP 123/97 H 10/19/20 08:13 Pulse Ox 93 L 10/19/20 08:12 Weight - Most Recent: 262 lb 8 oz I&O - Last 24 Hours: Intake & Output 10/18/20 10/19/20 10/19/20 22:59 06:59 14:59 Intake Total 2080 500 Output Total 2300 1550 Balance -220 -1050 Lab Results Last 24 Hours: Laboratory Results - last 24 hr 10/17/20 10/18/20 10/18/20 Range/Units 15:15 10:54 17:08 WBC (4.23-9.07) K/mm3 RBC (4.63-6.08) M/mm3 Hgb (13.7-17.5) gm/dl Hct (40.1-51.0) % MCV (79.0-92.2) fl MCH (25.7-32.2) pg MCHC (32.2-35.5) g/dl RDW Std Deviation (35.1-43.9) fL Plt Count (163-337) K/mm3 MPV (9.4-12.3) fl Neut % (Auto) (34.0-67.9) % Lymph % (Auto) (21.8-53.1) % [place] % (Auto) (5.3-12.2) % Eos % (Auto) (0.8-7.0) Baso % (Auto) (0.1-1.2) % Neut # (Auto) (1.78-5.38) K/mm3 Lymph # (Auto) (1.32-3.57) K/mm3 [place] # (Auto) (0.30-0.82) K/mm3 Eos # (Auto) (0.04-0.54) K/mm3 Baso # (Auto) (0.01-0.08) K/mm3 Manual Slide Review D-Dimer, Quantitative (0.19-0.50) mg/L Sodium (136-145) mEq/L Potassium (3.5-5.1) mEq/L Chloride (98-107) mEq/L Carbon Dioxide (21-32) mEq/L Anion Gap (5-15) BUN (7-18) mg/dL Creatinine (0.7-1.3) mg/dL Est Cr Clr Drug Dosing mL/min Estimated GFR (MDRD) (>60) mL/min BUN/Creatinine Ratio (14-18) Glucose (74-106) mg/dL POC Glucose 260 H 236 H (70-105) mg/dL Calcium (8.5-10.1) mg/dL Magnesium (1.8-2.4) mg/dl Total Bilirubin (0.2-1.0) mg/dL AST (15-37) U/L ALT (16-63) U/L Alkaline Phosphatase (46-116) U/L Total Protein (6.4-8.2) g/dl Albumin (3.4-5.0) g/dl Globulin gm/dL Albumin/Globulin Ratio (1-2) Procalcitonin 0.09 ng/mL 10/18/20 10/19/20 10/19/20 Range/Units 20:57 05:13 05:13 WBC 8.56 (4.23-9.07) K/mm3 RBC 5.77 (4.63-6.08) M/mm3 Hgb 15.8 (13.7-17.5) gm/dl Hct 49.0 (40.1-51.0) % MCV 84.9 (79.0-92.2) fl MCH 27.4 (25.7-32.2) pg MCHC 32.2 (32.2-35.5) g/dl RDW Std Deviation 42.0 (35.1-43.9) fL Plt Count 225 (163-337) K/mm3 MPV 10.0 (9.4-12.3) fl Neut % (Auto) 73.6 H (34.0-67.9) % Lymph % (Auto) 13.7 L (21.8-53.1) % Child[place] % (Auto) 12.1 (5.3-12.2) % Eos % (Auto) 0.1 L (0.8-7.0) Baso % (Auto) 0.1 (0.1-1.2) % Neut # (Auto) 6.30 H (1.78-5.38) K/mm3 Lymph # (Auto) 1.17 L (1.32-3.57) K/mm3 [place] # (Auto) 1.04 H (0.30-0.82) K/mm3 Eos # (Auto) 0.01 L (0.04-0.54) K/mm3 Baso # (Auto) 0.01 (0.01-0.08) K/mm3 Manual Slide Review Abnormal smear D-Dimer, Quantitative (0.19-0.50) mg/L Sodium 138 (136-145) mEq/L Potassium 3.8 (3.5-5.1) mEq/L Chloride 100 (98-107) mEq/L Carbon Dioxide 30 (21-32) mEq/L Anion Gap 11.8 (5-15) BUN 22 H (7-18) mg/dL Creatinine 1.1 (0.7-1.3) mg/dL Est Cr Clr Drug Dosing 78.91 mL/min Estimated GFR (MDRD) > 60 (>60) mL/min BUN/Creatinine Ratio 20.0 H (14-18) Glucose 243 H (74-106) mg/dL POC Glucose 263 H (70-105) mg/dL Calcium 9.0 (8.5-10.1) mg/dL Magnesium 2.1 (1.8-2.4) mg/dl Total Bilirubin 0.4 (0.2-1.0) mg/dL AST 45 H (15-37) U/L ALT 79 H (16-63) U/L Alkaline Phosphatase 70 (46-116) U/L Total Protein 7.0 (6.4-8.2) g/dl Albumin 2.9 L (3.4-5.0) g/dl Globulin 4.1 gm/dL Albumin/Globulin Ratio 0.7 L (1-2) Procalcitonin ng/mL 10/19/20 10/19/20 Range/Units 05:13 06:22 WBC (4.23-9.07) K/mm3 RBC (4.63-6.08) M/mm3 Hgb (13.7-17.5) gm/dl Hct (40.1-51.0) % MCV (79.0-92.2) fl MCH (25.7-32.2) pg MCHC (32.2-35.5) g/dl RDW Std Deviation (35.1-43.9) fL Plt Count (163-337) K/mm3 MPV (9.4-12.3) fl Neut % (Auto) (34.0-67.9) % Lymph % (Auto) (21.8-53.1) % [place] % (Auto) (5.3-12.2) % Eos % (Auto) (0.8-7.0) Baso % (Auto) (0.1-1.2) % Neut # (Auto) (1.78-5.38) K/mm3 Lymph # (Auto) (1.32-3.57) K/mm3 [place] # (Auto) (0.30-0.82) K/mm3 Eos # (Auto) (0.04-0.54) K/mm3 Baso # (Auto) (0.01-0.08) K/mm3 Manual Slide Review D-Dimer, Quantitative 0.39 (0.19-0.50) mg/L Sodium (136-145) mEq/L Potassium (3.5-5.1) mEq/L Chloride (98-107) mEq/L Carbon Dioxide (21-32) mEq/L Anion Gap (5-15) BUN (7-18) mg/dL Creatinine (0.7-1.3) mg/dL Est Cr Clr Drug Dosing mL/min Estimated GFR (MDRD) (>60) mL/min BUN/Creatinine Ratio (14-18) Glucose (74-106) mg/dL POC Glucose 207 H (70-105) mg/dL Calcium (8.5-10.1) mg/dL Magnesium (1.8-2.4) mg/dl Total Bilirubin (0.2-1.0) mg/dL AST (15-37) U/L ALT (16-63) U/L Alkaline Phosphatase (46-116) U/L Total Protein (6.4-8.2) g/dl Albumin (3.4-5.0) g/dl Globulin gm/dL Albumin/Globulin Ratio (1-2) Procalcitonin ng/mL Med Orders - Current: Current Medications Acetaminophen (Tylenol) 650 mg PO Q4H PRN PRN Reason: Pain (Mild 1-3)/fever Last Admin: 10/19/20 09:02 Dose: 650 mg Documented by: Albuterol (Proventil Hfa) 0 gm INH Q2H PRN PRN Reason: Shortness of Breath Alogliptin Benzoate (Alogliptin) 12.5 mg PO DAILY [facility] Last Admin: 10/19/20 08:10 Dose: 12.5 mg Documented by: Amlodipine Besylate (Norvasc) 10 mg PO DAILY [facility] Last Admin: 10/19/20 08:13 Dose: 10 mg Documented by: Aspirin (Ecotrin) 325 mg PO DAILY [facility] Last Admin: 10/19/20 08:12 Dose: 325 mg Documented by: Azithromycin (Zithromax) 500 mg PO DAILY@1130 [facility] Stop: 10/19/20 11:31 Last Admin: 10/18/20 12:24 Dose: 500 mg Documented by: Dexamethasone (Dexamethasone) 6 mg PO DAILY [facility] Stop: 10/26/20 09:01 Last Admin: 10/19/20 08:11 Dose: 6 mg Documented by: Diphenhydramine HCl (Benadryl) 100 mg PO BEDTIME [facility] Last Admin: 10/18/20 21:35 Dose: 100 mg Documented by: Enoxaparin Sodium (Lovenox) 40 mg SUBCUT DAILY [facility] Last Admin: 10/19/20 08:10 Dose: 40 mg Documented by: Famotidine (Pepcid) 20 mg PO BID [facility] Last Admin: 10/19/20 08:11 Dose: 20 mg Documented by: Hydrochlorothiazide (Hydrochlorothiazide) 25 mg PO DAILY [facility] Last Admin: 10/19/20 08:13 Dose: 25 mg Documented by: Remdesivir 100 mg/ Sodium (Chloride) 100 mls @ 100 mls/hr IV DAILY [facility] Stop: 10/21/20 09:59 Last Admin: 10/19/20 09:03 Dose: 100 mls/hr Documented by: Ceftriaxone Sodium 2 gm/ (Sodium Chloride) 100 mls @ 200 mls/hr IV Q24H [facility] Stop: 10/21/20 11:59 Last Admin: 10/18/20 12:24 Dose: 200 mls/hr Documented by: Influenza Virus Vaccine (Fluzone Quad [id number] Syringe) 60 mcg IM .ONCE ONE Stop: 10/21/20 12:01 Insulin Glargine (Lantus) 30 unit SUBCUT BID [facility] Last Admin: 10/19/20 08:09 Dose: 30 units Documented by: Insulin Human Lispro (Humalog) 0 unit SUBCUT QIDACANDBED [facility]; Protocol Last Admin: 10/19/20 08:14 Dose: 4 units Documented by: Lorazepam (Ativan) 1 mg PO QID PRN PRN Reason: Anxiety Metoprolol Tartrate (Lopressor) 100 mg PO BID [facility] Last Admin: 10/19/20 08:13 Dose: 100 mg Documented by: Multivitamins (Thera) 1 each PO DAILY [facility] Last Admin: 10/19/20 08:12 Dose: 1 each Documented by: Ondansetron HCl (Zofran) 4 mg IV Q6H PRN PRN Reason: Nausea/Vomiting Rosuvastatin Calcium (Crestor) 10 mg PO DAILY [facility] Last Admin: 10/19/20 08:12 Dose: 10 mg Documented by: Saccharomyces Boulardii (Florastor) 250 mg PO DAILY [facility] Last Admin: 10/19/20 08:11 Dose: 250 mg Documented by: Discontinued Medications Influenza Virus Vaccine (Pharmacy To Dose - Influenza Vaccine) 1 each IM ONETIME ONE Stop: 10/17/20 15:58 Insulin Glargine (Lantus) 20 unit SUBCUT BID [facility] Last Admin: 10/18/20 08:27 Dose: 20 units Documented by: Non-Formulary Medication (Cetirizine Hcl [Zyrtec]) 25 mg PO BEDTIME [facility] Last Admin: 10/18/20 11:23 Dose: Not Given Documented by: - Exam Quality Assessment: Supplemental Oxygen (4L), DVT Prophylaxis. No: Urine Catheter General: Alert, Oriented, Cooperative, No Acute Distress HEENT: Pupils Equal, Pupils Reactive, Mucous Membr. Moist/[place] Neck: Supple, Trachea Midline Lungs: Normal Respiratory Effort, Decreased Breath Sounds, Rales Cardiovascular: Regular Rate, Regular Rhythm GI/Abdominal Exam: Normal Bowel Sounds, Soft, Non-Tender, No Distention (Male) Exam: Deferred Back Exam: Normal Inspection, Full Range of Motion Extremities: Normal Inspection, Normal Range of Motion, Non-Tender, No Pedal Edema, Normal Capillary Refill Skin: Warm, Dry, Intact Neurological: No New Focal Deficit Psy/Mental Status: Alert, Anxious Sepsis Event Note - Evaluation Sepsis Screening Result: No Definite Risk - Focused Exam Vital Signs: Vital Signs Temp Pulse Resp BP Pulse Ox 10/19/20 08:13 62 123/97 H 10/19/20 08:12 62 123/97 H 93 L 10/19/20 06:27 98.2 F 56 L 117/99 H 92 L 10/19/20 01:24 97.7 F 50 L 16 101/69 97 - Problem List & Annotations (1) Pneumonia due to 2019 novel coronavirus SNOMED Code(s): 054574587546984190 Code(s): U07.1 - COVID-19; J12.89 - OTHER VIRAL PNEUMONIA Status: Acute Priority: High Current Visit: Yes (2) Type II diabetes mellitus SNOMED Code(s): 41267358 Code(s): E11.9 - TYPE 2 DIABETES MELLITUS WITHOUT COMPLICATIONS Status: Chronic Priority: Medium Current Visit: Yes Qualifiers: Diabetes mellitus intermediate insulin use: with termite technician use Diabetes mellitus complication status: without complication Qualified Code(s): E11.9 - Type 2 diabetes mellitus without complications; Z79.4 - alf (current) use of insulin (3) FREIDA on CPAP SNOMED Code(s): 57569699 Code(s): G47.33 - OBSTRUCTIVE SLEEP APNEA (ADULT) (PEDIATRIC); Z99.89 - DEPENDENCE ON OTHER ENABLING MACHINES AND DEVICES Status: Chronic Priority: Medium Current Visit: No (4) Hypertension SNOMED Code(s): 85627611 Code(s): I10 - ESSENTIAL (PRIMARY) HYPERTENSION Status: Chronic Priority: Medium Current Visit: No Qualifiers: Hypertension type: unspecified Qualified Code(s): I10 - Essential (primary) hypertension (5) Hypoxia SNOMED Code(s): 667526337 Code(s): R09.02 - HYPOXEMIA Status: Acute Priority: High Current Visit: Yes (6) Hypokalemia SNOMED Code(s): 35958414 Code(s): E87.6 - HYPOKALEMIA Status: Acute Priority: High Current Visit: Yes (7) Anxiety SNOMED Code(s): 65585050 Code(s): F41.9 - ANXIETY DISORDER, UNSPECIFIED Status: Chronic Priority: High Current Visit: Yes (8) GERD (gastroesophageal reflux disease) SNOMED Code(s): 100897814 Code(s): K21.9 - GASTRO-ESOPHAGEAL REFLUX DISEASE WITHOUT ESOPHAGITIS Status: Chronic Priority: Medium Current Visit: No Qualifiers: Esophagitis presence: esophagitis presence not specified Qualified Code(s): K21.9 - Gastro-esophageal reflux disease without esophagitis - Problem List Review Problem List Initiated/Reviewed/Updated: Yes - My Orders Last 24 Hours: My Active Orders 10/18/20 09:00 Alogliptin Benzoate [Alogliptin] 12.5 mg PO DAILY Aspirin [Ecotrin] 325 mg PO DAILY Enoxaparin [Lovenox] 40 mg SUBCUT DAILY Multivitamins,Therapeutic [Thera] 1 each PO DAILY Remdesivir 100 mg Sodium Chloride 0.9% [Normal Saline] 100 ml IV DAILY Rosuvastatin [Crestor] 10 mg PO DAILY Saccharomyces Boulardii [Florastor] 250 mg PO DAILY amLODIPine [Norvasc] 10 mg PO DAILY dexAMETHasone 6 mg PO DAILY hydroCHLOROthiazide 25 mg PO DAILY 10/18/20 11:30 Azithromycin [Zithromax] 500 mg PO DAILY@1130 cefTRIAXone [Rocephin] 2 gm Sodium Chloride 0.9% [Normal Saline] 100 ml IV Q24H 10/18/20 12:20 Consult to Transfer Worker [CONS] Routine 10/18/20 21:00 Insulin Glarg,Human.Rec.Analog [LantUS] 30 unit SUBCUT BID 10/20/20 05:11 CBC WITH AUTO DIFF [HEME] AM CMP [COMPREHENSIVE METABOLIC PN,CMP] [CHEM] AM MAGNESIUM [CHEM] AM 10/21/20 05:11 CBC WITH AUTO DIFF [HEME] AM CMP [COMPREHENSIVE METABOLIC PN,CMP] [CHEM] AM DD [D-DIMER QUANTITATIVE] [COAG] Q48H MAGNESIUM [CHEM] AM 10/23/20 05:11 DD [D-DIMER QUANTITATIVE] [COAG] Q48H - Assessment Assessment:: Assessment - Day of admission - 10/17/2020 * 55 yo male who was direct admit from [place] ED with COVID-19 PNA * Reports symptoms around gi that resolved and now returned. Was not tested then. * Reports SOB, back aches, fever, and decreased appetite. Fevers of 102-104 * Oxygen saturations of 87% in ED. 90's on 4L now * Given 200 mg remdesivir, 6mg dexamethasone, 1gm rocephin, 500mg azithromycin, 40mg lovenox, and 1L fluid bolus in [facility] ED * Potassium 20 mEq supplemented in [facility] * Utilized CPAP for FREIDA - has been using more during day due to SOB * Labs from [facility] ED: * WBC 7.50 * Hgb 16.5 * Plt 168 * Glucose 88 * Sodium 138 * Potassium 3.4 * Chloride 97 * Anion gap 18 * BUN 13 * Creatinine 1.0 * GFR >90 * Bilirubin 0.6 * Alk phos 84 * ALT 91 * AST 81 * Protein 7.3 * Albumin 4.0 * PT/INR 13.3/1.0 * Blood cultures pending * CRP 22.4 * Influenza A/B - negative * SARS-COV-2 RNA - positive 10/18/2020 * Down to 4L via NC * Reports he feels good but can tell he is SOB if he takes his oxygen off * Utilizing home CPAP while sleeping * Labs: * WBC 7.70 * HGB 15.3 * PLT 177 * Fibrinogen 613 * Potassium 3.7 * A1C 8.20 A * ST53, ALT 82, Alk Phos 71 * Troponin <0.017 * BNP 212 * Albumin 2.9 * Vitamin D 30.6 * LDH 267 * Ferritin 212 * D-dimer 0.44 * Procalcitonin 0.09 * Continuing current treatment plan 10/18/2020 * Remains on 4L via NC * States he feels pretty good * Continuing to utilize IS/Acapella and ambulate frequently around room * Requests ativan - states he is trying to quit but has longstanding history of anxiety * Discussed ativan use and anxiety with patient. Will consult Dr. Huntley * Labs: * WBC 8.56 * PLT 225 * D-Dimer 0.39 * Sodium 138 * Potassium 3.8 * GFR >60 * AST45, ALT79 Alk Phos 70 * Albumin 2.9 * Continue current treatment plan * Continue to work on weaning oxygen * Will hold off obtaining labs tomorrow as patient is very stable - Plan Plan:: Pneumonia due to 2019 novel coronavirus Hypoxia * Remdesivir - day 01/09 * Dexamethasone 6mg - day 01/14 * Rocephin 2gm - day 01/09 * Azithromycin 500mg - Day 01/07 * IS/Acapella * Encourage proning * RT consultation * PRN Albuterol via [facility]I * Oxygen as needed - goal saturations of 88-94% * Encourage ambulation around room * Airborne/droplet precautions * PT/OT eval * Telemetry/continuous pulse oximeter * Monitor daily labs * Obtain baseline 12-lead EKG Type II diabetes mellitus * Hold home metformin * Sliding scale insulin * Diabetic diet * Monitor need for insulin adjustments as patient is on steroids * Start Alogliptin 12.5mg daily * Increase doing of LA insulin * Consult cabin crew FREIDA on CPAP * Patient has home CPAP * Continue CPAP at bedtime and when napping Hypertension Anxiety GERD * Home medications as ordered * Dr. Huntley consult due to patients longstanding history of anxiety and concerns over medications. Code status: Full code PCP: None locally Social: Lives with who also has COVID-19 DVT prophylaxis: Lovenox Disposition: Admit patient to M/S/P on telemetry for COVID-19/hypoxia treatment Prognosis: Good Anticipated LOS >96 Hr due to COVID-19 treatment duration
[2020-10-19] MEDS ORDERED: LORazepam 1 MG Tab PO ONE (11:13)
[2020-10-19] MEDS: cefTRIAXone 2 GM in Sodium Chloride 0.9% 100 ML IV SCH (11:24)
[2020-10-19] MEDS: Azithromycin 250 MG Tab PO SCH (11:24)
[2020-10-19] MEDS: LORazepam 1 MG Tab PO SCH (18:08)
--- NOTE | 2020-10-19 18:18 | CONS ---
CONSULTING PHYSICIAN: Efraín Huntley MD DATE OF CONSULTATION: 10/19/2020 Site where the services are provider are [facility], [place], [place]. Site where the services are provided from our offices is [facility]. Length of service for this 60-minute inpatient telemedicine event is 60 minutes. IDENTIFICATION: The patient is a 55-year-old male who is admitted to the inpatient Med/Surg Unit at [facility] in [place], [place] for treatment of symptoms of COVID-19. He is seen for psychiatric consultation per the request of staff attending Dr. Mijares and his treatment team. CHIEF COMPLAINT: "COVID. I have been on lorazepam for like 10 years." HISTORY OF PRESENT ILLNESS: The patient is a 55-year-old male who reports that he began experiencing shortness of breath and sweats and severe lack of energy and high fever a few days ago and he was tested for COVID-19, which came back positive, was transferred down [place] to the inpatient Med/Surg Unit at [facility]. He states that he is being treated for the COVID, he is starting to feel better, but he states he also struggles with anxiety and notes, "I am kind of high strung." He states that he has been on Ativan for about 10 years, and he states that it was originally given to him for treatment of blood pressure, which it has helped as well as anxiety which it has helped, but he has noticed needed more as time has gone on. He states that in addition to the COVID, "we had a suicide in the family last month," it has been pretty stressful for him. He is wanting to go down on the Ativan if possible. Right now, he is taking 1 mg 3 times a day. He states that he did not take it for the last couple of days, and he started having breakthrough anxiety. He took 1 today, and he is feeling better. He denies that he is depressed, except this virus, he is having to deal with the [facility] COVID-19 viral pandemic personally, but besides that, he said that he states he sleeps pretty good and his mood is pretty good, in that he is generally a happy person. He denies that he is suicidal or homicidal. Denies any psychotic, delusional, or paranoid symptoms. He denies any illicit substance use or excessive alcohol use complicating his clinical picture. He states he would just like to get on to a lower dose of Ativan or get off it altogether if possible. MEDICATIONS: At the time of presentation; 1. Ativan 1 mg q.i.d. p.r.n. x10 years. The patient is taking 1 mg t.i.d. daily on the outside now. 2. Benadryl 100 mg at bedtime. 3. Zyrtec 25 mg daily. These were medications he was taking prior to admission. ALLERGIES: No known drug allergies. PAST MEDICAL HISTORY: 1. COVID-19. 2. History of hypertension. 3. History of diabetes. 4. Obstructive sleep apnea. 5. Seasonal allergic rhinitis. REVIEW OF SYSTEMS: Aside from the immune, cardiovascular, endocrine, and musculoskeletal/neuro, all other major organ systems are negative at this point in time for acute difficulties or complications. FAMILY, PSYCHIATRIC, AND CD HISTORY: The patient denies. PAST PSYCHIATRIC AND CD HISTORY: The patient denies any previous Psychiatric consultations or chemical dependency treatments. He is a nontobacco user. He uses maybe 3 beers a week per his calculation. He denies any previous suicide attempts, self-injurious behaviors, or eating disorder history. PAST PSYCHIATRIC DIAGNOSIS: Includes anxiety. PAST PSYCHIATRIC MEDICATION HISTORY: Includes Zoloft, and the patient had a bad experience with the Zoloft. SOCIAL HISTORY: The patient is born and raised in [place], [place]. He currently splits his time between [place], [place], and [place], [place]. 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 He is , has no children. Denies any prior service or any current legal difficulties. He is [employer] in terms of his chepe formation. He enjoys working and building custom cars in his spare time. MENTAL STATUS EXAMINATION: The patient is a 55-year-old white male in no apparent distress. Speech is of regular rate and rhythm. The patient is cognitively oriented x3. Psychomotor activity is within normal limits. There is no abnormal motor movements or tics observed. Gait is steady. Station is normal. Mood is anxious and worried. Affect is cooperative overall for the purposes of the inpatient consult. There is no behavioral or stated evidence of acute suicidal or homicidal ideation or acute psychotic, delusional, or paranoid symptoms. Thought processes are organized. There are no manic symptoms or loose associations evident. Judgment and insight appear unimpaired at this point in time. Motivation for help is good. VITAL SIGNS: 5 feet 11 inches tall, 260 pounds, 125/95, 57, 18, and 98.3 degrees. IMPRESSION: [place] I: Generalized anxiety disorder, F41.1. [place] II: None. [place] III: 1. COVID-19 positive status. 2. History of hypertension. 3. History of diabetes. 4. History of obstructive sleep apnea. 5. History of seasonal allergic rhinitis. [place] IV: Severe. [place] V: 60. PLAN: 1. Decrease the patient's Ativan from 1 mg q.i.d. p.r.n. to 1 mg b.i.d. scheduled to help with anxiety reduction and see if the patient is able to tolerate the lower scheduled dose. If the patient is able to tolerate the lower scheduled dose for a period of time, we will then look to further reduce the patient's Ativan dosage going forward once the patient is fully medically stabilized and discharged back to the community. 2. Recommend the patient continue his Benadryl 100 mg at bedtime on the outside to help with allergies and anxiety reduction. 3. The patient may continue Zyrtec 25 mg at bedtime on the outside as well. 4. Other medications as dosed and prescribed for patient for treatment of the patient's COVID-19 symptoms. 5. Recommend the patient continue to maintain good hydration status to help with poor function throughout the day. 6. Recommend the patient maintain caffeine moderation to prevent breakthrough symptoms of anxiety. 7. The patient is counseled to maintain medication compliance to help from any breakthrough symptoms of anxiety or withdrawal symptoms. 8. Recommend the patient follow up with Outpatient Psychiatry once he is stabilized and discharged back to community to within 2 to 3 weeks to assess his overall function and efficacy of his newly adjusted Ativan medication. 9. We will follow up with the patient while he remains on the inpatient Med/Surg Unit at [facility] in [place], [place] if there are any complications in the interim. 10.Crisis plan is in place. MMODAL /[id number]
[2020-10-19] MEDS: diphenhydrAMINE 50 MG Cap PO SCH (21:28)
[2020-10-20] MEDS: REMDESIVIR 100 MG in Sodium Chloride 0.9% 100 ML IV SCH (09:00)
[2020-10-20] MEDS: Enoxaparin 40 MG/0.4 ML Syringe SUBCUT SCH (09:02)
[2020-10-20] MEDS: Metoprolol Tartrate 100 MG Tab PO SCH ×2 (09:03→21:23)
[2020-10-20] MEDS: Insulin Glarg,Human.Rec.Analog 100 Unit/ML SUBCUT SCH ×2 (09:03→21:30)
[2020-10-20] MEDS: LORazepam 1 MG Tab PO SCH ×2 (09:04→17:28)
[2020-10-20] MEDS: Saccharomyces Boulardii (Probiotic) 250 MG Cap PO SCH (09:04)
[2020-10-20] MEDS: amLODIPine 10 MG Tab PO SCH (09:04)
[2020-10-20] MEDS: Hydrochlorothiazide 25 MG Tab PO SCH (09:05)
[2020-10-20] MEDS: Dexamethasone 4 MG Tab PO SCH (09:05)
[2020-10-20] MEDS: Famotidine 20 MG Tab PO SCH ×2 (09:06→21:23)
[2020-10-20] MEDS: Rosuvastatin 10 MG Tab PO SCH (09:06)
[2020-10-20] MEDS: Multivitamins,Therapeutic Tab PO SCH (09:06)
[2020-10-20] MEDS: Aspirin 325 MG Tab.EC PO SCH (09:06)
[2020-10-20] MEDS: cefTRIAXone 2 GM in Sodium Chloride 0.9% 100 ML IV SCH (12:08)
--- NOTE | 2020-10-20 13:03 | PCM.PN ---
- General Info Date of Service: 10/20/20 Admission Dx/Problem (Free Text): Admission Diagnosis/Problem Admission Diagnosis/Problem Hypoxia Subjective Update: Patient states he feels well however he still remains on oxygen at 3 L per nasal cannula. States he does his incentive spirometer 20-30 times an hour and is up ambulating as much as possible in his room. Functional Status: Reports: Pain Controlled, Tolerating Diet, Ambulating, Incen tive Spirometry - Review of Systems General: Reports: No Symptoms HEENT: Reports: No Symptoms Pulmonary: Reports: No Symptoms, Cough. Denies: Shortness of Breath, Sputum, Wheezing Cardiovascular: Reports: No Symptoms Gastrointestinal: Reports: No Symptoms Genitourinary: Reports: No Symptoms Musculoskeletal: Reports: No Symptoms Skin: Reports: No Symptoms Neurological: Reports: No Symptoms Psychiatric: Reports: No Symptoms - Patient Data Vitals - Most Recent: Last Vital Signs Temp 97.9 F 10/20/20 11:18 Pulse 56 L 10/20/20 11:18 Resp 16 10/20/20 11:18 BP 139/98 H 10/20/20 11:18 Pulse Ox 92 L 10/20/20 11:18 Weight - Most Recent: 263 lb I&O - Last 24 Hours: Intake & Output 10/19/20 10/20/20 10/20/20 22:59 06:59 14:59 Intake Total 2280 1000 240 Output Total 2000 2000 Balance 280 -1000 240 Lab Results Last 24 Hours: Laboratory Results - last 24 hr 10/19/20 10/19/20 10/19/20 Range/Units 12:10 16:20 17:14 POC Glucose 241 H 297 H 257 H (70-105) mg/dL 10/19/20 10/20/20 Range/Units 21:01 05:56 POC Glucose 248 H 205 H (70-105) mg/dL Med Orders - Current: Current Medications Acetaminophen (Tylenol) 650 mg PO Q4H PRN PRN Reason: Pain (Mild 1-3)/fever Last Admin: 10/19/20 09:02 Dose: 650 mg Documented by: Albuterol (Proventil Hfa) 0 gm INH Q2H PRN PRN Reason: Shortness of Breath Alogliptin Benzoate (Alogliptin) 12.5 mg PO DAILY MICHELE Last Admin: 10/20/20 09:06 Dose: 12.5 mg Documented by: Amlodipine Besylate (Norvasc) 10 mg PO DAILY [facility] Last Admin: 10/20/20 09:04 Dose: 10 mg Documented by: Aspirin (Ecotrin) 325 mg PO DAILY [facility] Last Admin: 10/20/20 09:06 Dose: 325 mg Documented by: Dexamethasone (Dexamethasone) 6 mg PO DAILY [facility] Stop: 10/26/20 09:01 Last Admin: 10/20/20 09:05 Dose: 6 mg Documented by: Diphenhydramine HCl (Benadryl) 100 mg PO BEDTIME [facility] Last Admin: 10/19/20 21:28 Dose: 100 mg Documented by: Enoxaparin Sodium (Lovenox) 40 mg SUBCUT DAILY [facility] Last Admin: 10/20/20 09:02 Dose: 40 mg Documented by: Famotidine (Pepcid) 20 mg PO BID [facility] Last Admin: 10/20/20 09:06 Dose: 20 mg Documented by: Hydrochlorothiazide (Hydrochlorothiazide) 25 mg PO DAILY [facility] Last Admin: 10/20/20 09:05 Dose: 25 mg Documented by: Remdesivir 100 mg/ Sodium (Chloride) 100 mls @ 100 mls/hr IV DAILY [facility] Stop: 10/21/20 09:59 Last Admin: 10/20/20 09:00 Dose: 100 mls/hr Documented by: Ceftriaxone Sodium 2 gm/ (Sodium Chloride) 100 mls @ 200 mls/hr IV Q24H [facility] Stop: 10/21/20 11:59 Last Admin: 10/20/20 12:08 Dose: 200 mls/hr Documented by: Influenza Virus Vaccine (Fluzone Quad Syringe) 60 mcg IM .ONCE ONE Stop: 10/21/20 12:01 Insulin Glargine (Lantus) 40 unit SUBCUT BID [facility] Last Admin: 10/20/20 09:03 Dose: 410 units Documented by: Insulin Human Lispro (Humalog) 0 unit SUBCUT QIDACANDBED [facility]; Protocol Last Admin: 10/20/20 12:08 Dose: 9 units Documented by: Lorazepam (Ativan) 1 mg PO BID@0900,1700 [facility] Last Admin: 10/20/20 09:04 Dose: 1 mg Documented by: Metoprolol Tartrate (Lopressor) 100 mg PO BID [facility] Last Admin: 10/20/20 09:03 Dose: 100 mg Documented by: Multivitamins (Thera) 1 each PO DAILY [facility] Last Admin: 10/20/20 09:06 Dose: 1 each Documented by: Ondansetron HCl (Zofran) 4 mg IV Q6H PRN PRN Reason: Nausea/Vomiting Rosuvastatin Calcium (Crestor) 10 mg PO DAILY [facility] Last Admin: 10/20/20 09:06 Dose: 10 mg Documented by: Saccharomyces Boulardii (Florastor) 250 mg PO DAILY [facility] Last Admin: 10/20/20 09:04 Dose: 250 mg Documented by: Discontinued Medications Azithromycin (Zithromax) 500 mg PO DAILY@1130 [facility] Stop: 10/19/20 11:31 Last Admin: 10/19/20 11:24 Dose: 500 mg Documented by: Influenza Virus Vaccine (Pharmacy To Dose - Influenza Vaccine) 1 each IM ONETIME ONE Stop: 10/17/20 15:58 Insulin Glargine (Lantus) 20 unit SUBCUT BID [facility] Last Admin: 10/18/20 08:27 Dose: 20 units Documented by: Insulin Glargine (Lantus) 30 unit SUBCUT BID [facility] Last Admin: 10/19/20 08:09 Dose: 30 units Documented by: Insulin Human Lispro (Humalog) 0 unit SUBCUT QIDACANDBED [facility]; Protocol Last Admin: 10/20/20 08:50 Dose: Not Given Documented by: Lorazepam (Ativan) 1 mg PO QID PRN PRN Reason: Anxiety Lorazepam (Ativan) 1 mg PO ONETIME ONE Stop: 10/19/20 11:14 Last Admin: 10/19/20 11:24 Dose: 1 mg Documented by: Non-Formulary Medication (Cetirizine Hcl [Zyrtec]) 25 mg PO BEDTIME [facility] Last Admin: 10/18/20 11:23 Dose: Not Given Documented by: - Exam Quality Assessment: Supplemental Oxygen (3 L per nasal cannula), DVT Prophylaxis General: Alert, Oriented, Cooperative, No Acute Distress HEENT: Pupils Equal, Pupils Reactive, Mucous Membr. Moist/[place] Neck: Supple, Trachea Midline. No: Lymphadenopathy Lungs: Normal Respiratory Effort, Decreased Breath Sounds Cardiovascular: Regular Rate, Regular Rhythm, No Murmurs GI/Abdominal Exam: Normal Bowel Sounds, Soft, Non-Tender, No Distention (Male) Exam: Deferred Back Exam: Normal Inspection, Full Range of Motion Extremities: Normal Inspection, Normal Range of Motion, Non-Tender, No Pedal Edema, Normal Capillary Refill Peripheral Pulses: 2+: Radial (L), Radial (R), Dorsalis Pedis (L), Dorsalis Pedis (R) Skin: Warm, Dry, Intact Wound/Incisions: Healing Well, Dressing Dry and Intact Neurological: No New Focal Deficit Psy/Mental Status: Alert, Normal Affect, Normal Mood Sepsis Event Note - Evaluation Sepsis Screening Result: No Definite Risk - Focused Exam Vital Signs: Vital Signs Temp Pulse Resp BP Pulse Ox 10/20/20 11:18 97.9 F 56 L 16 139/98 H 92 L 10/20/20 09:04 113/75 10/20/20 09:03 62 113/75 10/20/20 09:01 62 113/75 94 L 10/20/20 07:37 98.4 F 58 L 18 128/73 89 L 10/20/20 05:53 98.1 F 52 L 16 117/78 96 10/20/20 01:54 52 L 20 103/55 L 96 - Problem List & Annotations (1) Hypokalemia SNOMED Code(s): 68729659 Code(s): E87.6 - HYPOKALEMIA Status: Acute Priority: High Current Visit: Yes (2) Hypoxia SNOMED Code(s): 856544409 Code(s): R09.02 - HYPOXEMIA Status: Acute Priority: High Current Visit: Yes (3) Pneumonia due to 2019 novel coronavirus SNOMED Code(s): 275376992659430166 Code(s): U07.1 - COVID-19; J12.89 - OTHER VIRAL PNEUMONIA Status: Acute Priority: High Current Visit: Yes (4) Anxiety SNOMED Code(s): 75721515 Code(s): F41.9 - ANXIETY DISORDER, UNSPECIFIED Status: Chronic Priority: High Current Visit: Yes (5) Type II diabetes mellitus SNOMED Code(s): 22115553 Code(s): E11.9 - TYPE 2 DIABETES MELLITUS WITHOUT COMPLICATIONS Status: Chronic Priority: Medium Current Visit: Yes Qualifiers: Diabetes mellitus jail insulin use: with superintendent container terminal use Diabetes mellitus complication status: without complication Qualified Code(s): E11.9 - Type 2 diabetes mellitus without complications; Z79.4 - MCFP (current) use of insulin (6) GERD (gastroesophageal reflux disease) SNOMED Code(s): 222339365 Code(s): K21.9 - GASTRO-ESOPHAGEAL REFLUX DISEASE WITHOUT ESOPHAGITIS Status: Chronic Priority: Medium Current Visit: No Qualifiers: Esophagitis presence: esophagitis presence not specified Qualified Code(s): K21.9 - Gastro-esophageal reflux disease without esophagitis (7) Hypertension SNOMED Code(s): 64827206 Code(s): I10 - ESSENTIAL (PRIMARY) HYPERTENSION Status: Chronic Priority: Medium Current Visit: No Qualifiers: Hypertension type: unspecified Qualified Code(s): I10 - Essential (primary) hypertension (8) FREIDA on CPAP SNOMED Code(s): 70633258 Code(s): G47.33 - OBSTRUCTIVE SLEEP APNEA (ADULT) (PEDIATRIC); Z99.89 - DEPENDENCE ON OTHER ENABLING MACHINES AND DEVICES Status: Chronic Priority: Medium Current Visit: No - Problem List Review Problem List Initiated/Reviewed/Updated: Yes - My Orders Last 24 Hours: My Active Orders 10/20/20 11:00 Insulin Lispro [HumaLOG] See Protocol SUBCUT QIDACANDBED - Assessment Assessment:: Assessment - Day of admission - 10/17/2020 * 55 yo male who was direct admit from [place] ED with COVID-19 PNA * Reports symptoms around Thanksgiving that resolved and now returned. Was not tested then. * Reports SOB, back aches, fever, and decreased appetite. Fevers of 102-104 * Oxygen saturations of 87% in ED. 90's on 4L now * Given 200 mg remdesivir, 6mg dexamethasone, 1gm rocephin, 500mg azithromycin, 40mg lovenox, and 1L fluid bolus in [facility] ED * Potassium 20 mEq supplemented in [facility] * Utilized CPAP for FREIDA - has been using more during day due to SOB * Labs from [facility] ED: * WBC 7.50 * Hgb 16.5 * Plt 168 * Glucose 88 * Sodium 138 * Potassium 3.4 * Chloride 97 * Anion gap 18 * BUN 13 * Creatinine 1.0 * GFR >90 * Bilirubin 0.6 * Alk phos 84 * ALT 91 * AST 81 * Protein 7.3 * Albumin 4.0 * PT/INR 13.3/1.0 * Blood cultures pending * CRP 22.4 * Influenza A/B - negative * SARS-COV-2 RNA - positive 10/18/2020 * Down to 4L via NC * Reports he feels good but can tell he is SOB if he takes his oxygen off * Utilizing home CPAP while sleeping * Labs: * WBC 7.70 * HGB 15.3 * PLT 177 * Fibrinogen 613 * Potassium 3.7 * A1C 8.20 A * ST53, ALT 82, Alk Phos 71 * Troponin <0.017 * BNP 212 * Albumin 2.9 * Vitamin D 30.6 * LDH 267 * Ferritin 212 * D-dimer 0.44 * Procalcitonin 0.09 * Continuing current treatment plan 10/18/2020 * Remains on 4L via NC * States he feels pretty good * Continuing to utilize IS/Acapella and ambulate frequently around room * Requests ativan - states he is trying to quit but has longstanding history of anxiety * Discussed ativan use and anxiety with patient. Will consult Dr. Huntley * Labs: * WBC 8.56 * PLT 225 * D-Dimer 0.39 * Sodium 138 * Potassium 3.8 * GFR >60 * AST45, ALT79 Alk Phos 70 * Albumin 2.9 * Continue current treatment plan * Continue to work on weaning oxygen * Will hold off obtaining labs tomorrow as patient is very stable 10/20/2020 * Remains on 3L via NC * States he feels pretty good * Continuing to utilize IS/Acapella and ambulate frequently around room * Ativan scheduled BID per Dr. Huntley consult. Pt is agreeable to this and reports that it is working well for him. * Day three of Dexamethasone and Remdesivir * Continue current treatment plan * Continue to work on weaning oxygen * Blood sugars range from 205-257 * Day four of Rocephin * Has completed 3 days of Zithromax 500mg IV - Plan Plan:: Pneumonia due to 2019 novel coronavirus Hypoxia * Remdesivir - day 02/09 * Dexamethasone 6mg - day 02/14 * Rocephin 2gm - day 45 * Azithromycin 500mg - Completed three days * IS/Acapella * Encourage proning * RT consultation * PRN Albuterol via [facility]I * Oxygen as needed - goal saturations of 88-94% * Encourage ambulation around room * Airborne/droplet precautions * PT/OT eval * Telemetry/continuous pulse oximeter * Monitor daily labs * Obtain baseline 12-lead EKG Type II diabetes mellitus * Hold home metformin * Sliding scale insulin-increased to high dose sliding scale coverage * Diabetic diet * Monitor need for insulin adjustments as patient is on steroids * Start Alogliptin 12.5mg daily * Increase doing of LA insulin * Consult guard entrance registrar FREIDA on CPAP * Patient has home CPAP * Continue CPAP at bedtime and when napping Hypertension Anxiety GERD * Home medications as ordered * Dr. Huntley recommends scheduled dose of po ativan BID Code status: Full code PCP: None locally Social: Lives with who also has COVID-19 DVT prophylaxis: Lovenox Disposition: Admit patient to M/S/P on telemetry for COVID-19/hypoxia treatment Prognosis: Good Anticipated LOS >96 Hr due to COVID-19 treatment duration
[2020-10-20] MEDS: diphenhydrAMINE 50 MG Cap PO SCH (21:22)
--- NOTE | 2020-10-21 07:38 | PCM.PN ---
- General Info Date of Service: 10/21/20 Admission Dx/Problem (Free Text): Admission Diagnosis/Problem Admission Diagnosis/Problem Hypoxia Subjective Update: In to see Pastor. He is doing very well. He remains on 1L of oxygen. He continues to utilize his IS and acapella. He is also ambulating regularly. He should complete remdesivir and ABX treatment today. Will continue dexamethasone for now. Attempting to wean oxygen. Likely discharge in 24-48 hours pending brigido nued progress. Functional Status: Reports: Pain Controlled, Tolerating Diet, Ambulating, Urinating, Incentive Spirometry, Other (Acapella ). Denies: New Symptoms - Review of Systems General: Reports: No Symptoms. Denies: Fever, Weakness, Fatigue, Malaise, Chills HEENT: Reports: No Symptoms. Denies: Headaches, Sore Throat Pulmonary: Reports: Cough. Denies: Shortness of Breath, Pleuritic Chest Pain, Sputum, Wheezing Cardiovascular: Reports: No Symptoms, Dyspnea on Exertion. Denies: Chest Pain, Palpitations, Edema Gastrointestinal: Reports: No Symptoms. Denies: Abdominal Pain, Constipation, Diarrhea, Nausea, Vomiting Genitourinary: Reports: No Symptoms. Denies: Pain Musculoskeletal: Reports: No Symptoms Skin: Reports: No Symptoms. Denies: Cyanosis Neurological: Reports: No Symptoms. Denies: Confusion, Pre-Existing Deficit, Difficulty Walking, Gait Disturbance Psychiatric: Reports: No Symptoms - Patient Data Vitals - Most Recent: Last Vital Signs Temp 98.1 F 10/21/20 04:17 Pulse 55 L 10/21/20 04:17 Resp 23 H 10/21/20 04:17 BP 123/76 10/21/20 04:17 Pulse Ox 96 10/21/20 06:23 Weight - Most Recent: 260 lb 3.2 oz I&O - Last 24 Hours: Intake & Output 10/20/20 10/21/20 10/21/20 22:59 06:59 14:59 Intake Total 4280 700 Output Total 4200 900 Balance 80 -200 Lab Results Last 24 Hours: Laboratory Results - last 24 hr 10/20/20 10/20/20 10/20/20 Range/Units 11:16 16:21 20:56 POC Glucose 269 H 275 H 344 H (70-105) mg/dL 12/15/20 Range/Units 06:08 POC Glucose 204 H (70-105) mg/dL Med Orders - Current: Current Medications Acetaminophen (Tylenol) 650 mg PO Q4H PRN PRN Reason: Pain (Mild 1-3)/fever Last Admin: 10/19/20 09:02 Dose: 650 mg Documented by: Albuterol (Proventil Hfa) 0 gm INH Q2H PRN PRN Reason: Shortness of Breath Alogliptin Benzoate (Alogliptin) 12.5 mg PO DAILY [facility] Last Admin: 10/20/20 09:06 Dose: 12.5 mg Documented by: Amlodipine Besylate (Norvasc) 10 mg PO DAILY [facility] Last Admin: 10/20/20 09:04 Dose: 10 mg Documented by: Aspirin (Ecotrin) 325 mg PO DAILY [facility] Last Admin: 10/20/20 09:06 Dose: 325 mg Documented by: Dexamethasone (Dexamethasone) 6 mg PO DAILY [facility] Stop: 10/26/20 09:01 Last Admin: 10/20/20 09:05 Dose: 6 mg Documented by: Diphenhydramine HCl (Benadryl) 100 mg PO BEDTIME [facility] Last Admin: 10/20/20 21:22 Dose: 100 mg Documented by: Enoxaparin Sodium (Lovenox) 40 mg SUBCUT DAILY [facility] Last Admin: 10/20/20 09:02 Dose: 40 mg Documented by: Famotidine (Pepcid) 20 mg PO BID [facility] Last Admin: 10/20/20 21:23 Dose: 20 mg Documented by: Hydrochlorothiazide (Hydrochlorothiazide) 25 mg PO DAILY [facility] Last Admin: 10/20/20 09:05 Dose: 25 mg Documented by: Remdesivir 100 mg/ Sodium (Chloride) 100 mls @ 100 mls/hr IV DAILY [facility] Stop: 10/21/20 09:59 Last Admin: 10/20/20 09:00 Dose: 100 mls/hr Documented by: Ceftriaxone Sodium 2 gm/ (Sodium Chloride) 100 mls @ 200 mls/hr IV Q24H [facility] Stop: 10/21/20 11:59 Last Admin: 10/20/20 12:08 Dose: 200 mls/hr Documented by: Influenza Virus Vaccine (Fluzone Quad [id number] Syringe) 60 mcg IM .ONCE ONE Stop: 10/21/20 12:01 Insulin Glargine (Lantus) 40 unit SUBCUT BID [facility] Last Admin: 10/20/20 21:30 Dose: 40 units Documented by: Insulin Human Lispro (Humalog) 0 unit SUBCUT QIDACANDBED [facility]; Protocol Last Admin: 10/20/20 21:31 Dose: 12 units Documented by: Lorazepam (Ativan) 1 mg PO BID@0900,1700 [facility] Last Admin: 10/20/20 17:28 Dose: 1 mg Documented by: Metoprolol Tartrate (Lopressor) 100 mg PO BID [facility] Last Admin: 10/20/20 21:23 Dose: 100 mg Documented by: Multivitamins (Thera) 1 each PO DAILY [facility] Last Admin: 10/20/20 09:06 Dose: 1 each Documented by: Ondansetron HCl (Zofran) 4 mg IV Q6H PRN PRN Reason: Nausea/Vomiting Rosuvastatin Calcium (Crestor) 10 mg PO DAILY [facility] Last Admin: 10/20/20 09:06 Dose: 10 mg Documented by: Saccharomyces Boulardii (Florastor) 250 mg PO DAILY [facility] Last Admin: 10/20/20 09:04 Dose: 250 mg Documented by: Discontinued Medications Azithromycin (Zithromax) 500 mg PO DAILY@1130 [facility] Stop: 10/19/20 11:31 Last Admin: 10/19/20 11:24 Dose: 500 mg Documented by: Influenza Virus Vaccine (Pharmacy To Dose - Influenza Vaccine) 1 each IM ONETIME ONE Stop: 10/17/20 15:58 Insulin Glargine (Lantus) 20 unit SUBCUT BID [facility] Last Admin: 10/18/20 08:27 Dose: 20 units Documented by: Insulin Glargine (Lantus) 30 unit SUBCUT BID [facility] Last Admin: 10/19/20 08:09 Dose: 30 units Documented by: Insulin Human Lispro (Humalog) 0 unit SUBCUT QIDACANDBED [facility]; Protocol Last Admin: 10/20/20 08:50 Dose: Not Given Documented by: Lorazepam (Ativan) 1 mg PO QID PRN PRN Reason: Anxiety Lorazepam (Ativan) 1 mg PO ONETIME ONE Stop: 10/19/20 11:14 Last Admin: 10/19/20 11:24 Dose: 1 mg Documented by: Non-Formulary Medication (Cetirizine Hcl [Zyrtec]) 25 mg PO BEDTIME [facility] Last Admin: 10/18/20 11:23 Dose: Not Given Documented by: - Exam Quality Assessment: Supplemental Oxygen (1L), DVT Prophylaxis. No: Urine Catheter General: Alert, Oriented, Cooperative, No Acute Distress HEENT: Pupils Equal, Pupils Reactive, Mucous Membr. Moist/[place] Neck: Supple, Trachea Midline Lungs: Normal Respiratory Effort, Decreased Breath Sounds Cardiovascular: Regular Rate, Regular Rhythm GI/Abdominal Exam: Normal Bowel Sounds, Soft, Non-Tender, No Distention (Male) Exam: Deferred Back Exam: Normal Inspection, Full Range of Motion Extremities: Normal Inspection, Normal Range of Motion, Non-Tender, No Pedal E brenda, Normal Capillary Refill Peripheral Pulses: 2+: Radial (L), Radial (R), Dorsalis Pedis (L), Dorsalis Pedis (R) Skin: Warm, Dry, Intact Neurological: No New Focal Deficit Psy/Mental Status: Alert, Normal Affect, Normal Mood Sepsis Event Note - Evaluation Sepsis Screening Result: No Definite Risk - Focused Exam Vital Signs: Vital Signs Temp Pulse Resp BP Pulse Ox Pulse Ox Pulse Ox 10/21/20 06:23 96 10/21/20 04:17 98.1 F 55 L 23 H 123/76 92 L 10/21/20 00:46 98.1 F 46 L 24 H 113/71 94 L 10/20/20 21:23 61 118/67 10/20/20 20:59 97.9 F 61 22 H 118/67 90 L 10/20/20 20:14 90 L - Problem List & Annotations (1) Pneumonia due to 2019 novel coronavirus SNOMED Code(s): 536272907591888918 Code(s): U07.1 - COVID-19; J12.89 - OTHER VIRAL PNEUMONIA Status: Acute Priority: High Current Visit: Yes (2) Type II diabetes mellitus SNOMED Code(s): 77773186 Code(s): E11.9 - TYPE 2 DIABETES MELLITUS WITHOUT COMPLICATIONS Status: Chronic Priority: Medium Current Visit: Yes Qualifiers: Diabetes mellitus senior care insulin use: with buttermaker continuous churn use Diabetes mellitus complication status: without complication Qualified Code(s): E11.9 - Type 2 diabetes mellitus without complications; Z79.4 - ferry terminal agent (current) use of insulin (3) FREIDA on CPAP SNOMED Code(s): 76373485 Code(s): G47.33 - OBSTRUCTIVE SLEEP APNEA (ADULT) (PEDIATRIC); Z99.89 - DEPENDENCE ON OTHER ENABLING MACHINES AND DEVICES Status: Chronic Priority: Medium Current Visit: No (4) Hypertension SNOMED Code(s): 71694609 Code(s): I10 - ESSENTIAL (PRIMARY) HYPERTENSION Status: Chronic Priority: Medium Current Visit: No Qualifiers: Hypertension type: unspecified Qualified Code(s): I10 - Essential (primary) hypertension (5) Hypoxia SNOMED Code(s): 779091272 Code(s): R09.02 - HYPOXEMIA Status: Acute Priority: High Current Visit: Yes (6) Hypokalemia SNOMED Code(s): 82678144 Code(s): E87.6 - HYPOKALEMIA Status: Acute Priority: High Current Visit: Yes (7) Anxiety SNOMED Code(s): 59182395 Code(s): F41.9 - ANXIETY DISORDER, UNSPECIFIED Status: Chronic Priority: High Current Visit: Yes (8) GERD (gastroesophageal reflux disease) SNOMED Code(s): 050570649 Code(s): K21.9 - GASTRO-ESOPHAGEAL REFLUX DISEASE WITHOUT ESOPHAGITIS Status: Chronic Priority: Medium Current Visit: No Qualifiers: Esophagitis presence: esophagitis presence not specified Qualified Code(s): K21.9 - Gastro-esophageal reflux disease without esophagitis - Problem List Review Problem List Initiated/Reviewed/Updated: Yes - Assessment Assessment:: Assessment - Day of admission - 10/17/2020 * 55 yo male who was direct admit from [facility] with COVID-19 PNA * Reports symptoms around giving that resolved and now returned. Was not tested then. * Reports SOB, back aches, fever, and decreased appetite. Fevers of 102-104 * Oxygen saturations of 87% in ED. 90's on 4L now * Given 200 mg remdesivir, 6mg dexamethasone, 1gm rocephin, 500mg azithromycin, 40mg lovenox, and 1L fluid bolus in [facility] * Potassium 20 mEq supplemented in [facility] * Utilized CPAP for FREIDA - has been using more during day due to SOB * Labs from [facility] ED: * WBC 7.50 * Hgb 16.5 * Plt 168 * Glucose 88 * Sodium 138 * Potassium 3.4 * Chloride 97 * Anion gap 18 * BUN 13 * Creatinine 1.0 * GFR >90 * Bilirubin 0.6 * Alk phos 84 * ALT 91 * AST 81 * Protein 7.3 * Albumin 4.0 * PT/INR 13.3/1.0 * Blood cultures pending * CRP 22.4 * Influenza A/B - negative * SARS-COV-2 RNA - positive 10/18/2020 * Down to 4L via [place] * Reports he feels good but can tell he is SOB if he takes his oxygen off * Utilizing home CPAP while sleeping * Labs: * WBC 7.70 * HGB 15.3 * PLT 177 * Fibrinogen 613 * Potassium 3.7 * A1C 8.20 A * ST53, ALT 82, Alk Phos 71 * Troponin <0.017 * BNP 212 * Albumin 2.9 * Vitamin D 30.6 * LDH 267 * Ferritin 212 * D-dimer 0.44 * Procalcitonin 0.09 * Continuing current treatment plan 10/18/2020 * Remains on 4L via NC * States he feels pretty good * Continuing to utilize IS/Acapella and ambulate frequently around room * Requests ativan - states he is trying to quit but has longstanding history of anxiety * Discussed ativan use and anxiety with patient. Will consult Dr. Huntley * Labs: * WBC 8.56 * PLT 225 * D-Dimer 0.39 * Sodium 138 * Potassium 3.8 * GFR >60 * AST45, ALT79 Alk Phos 70 * Albumin 2.9 * Continue current treatment plan * Continue to work on weaning oxygen * Will hold off obtaining labs tomorrow as patient is very stable 10/20/2020 * Remains on 3L via [place] * States he feels pretty good * Continuing to utilize IS/Acapella and ambulate frequently around room * Ativan scheduled BID per Dr. Huntley consult. Pt is agreeable to this and reports that it is working well for him. * Day three of Dexamethasone and Remdesivir * Continue current treatment plan * Continue to work on weaning oxygen * Blood sugars range from 205-257 * Day four of Rocephin * Has completed 3 days of Zithromax 500mg IV - Plan Plan:: Pneumonia due to 2019 novel coronavirus Hypoxia * Remdesivir - day 03/11 * Dexamethasone 6mg - day 03/16 * Rocephin 2gm - day 03/11 * Azithromycin 500mg - Completed three days * IS/Acapella * Encourage proning * RT consultation * PRN Albuterol via [facility] * Oxygen as needed - goal saturations of 88-94% * Encourage ambulation around room * Airborne/droplet precautions * PT/OT eval * Telemetry/continuous pulse oximeter * Monitor daily labs Type II diabetes mellitus * Hold home metformin * Sliding scale insulin-increased to high dose sliding scale coverage * Diabetic diet * Monitor need for insulin adjustments as patient is on steroids * Start Alogliptin 12.5mg daily * Increase doing of LA insulin * Consult software implementation project manager FREIDA on CPAP * Patient has home CPAP * Continue CPAP at bedtime and when napping Hypertension Anxiety GERD * Home medications as ordered * Dr. Huntley recommends scheduled dose of po ativan BID Code status: Full code PCP: None locally Social: Lives with who also has COVID-19 DVT prophylaxis: Lovenox Disposition: Admit patient to M/S/P on telemetry for COVID-19/hypoxia treatment Prognosis: Good Anticipated LOS >96 Hr due to COVID-19 treatment duration
[2020-10-21] MEDS: Insulin Glarg,Human.Rec.Analog 100 Unit/ML SUBCUT SCH ×2 (09:15→22:10)
[2020-10-21] MEDS: REMDESIVIR 100 MG in Sodium Chloride 0.9% 100 ML IV SCH (10:01)
[2020-10-21] MEDS: Metoprolol Tartrate 100 MG Tab PO SCH ×2 (10:01→22:16)
[2020-10-21] MEDS: Rosuvastatin 10 MG Tab PO SCH (10:01)
[2020-10-21] MEDS: Hydrochlorothiazide 25 MG Tab PO SCH (10:02)
[2020-10-21] MEDS: Aspirin 325 MG Tab.EC PO SCH (10:03)
[2020-10-21] MEDS: Multivitamins,Therapeutic Tab PO SCH (10:03)
[2020-10-21] MEDS: Famotidine 20 MG Tab PO SCH ×2 (10:03→22:08)
[2020-10-21] MEDS: amLODIPine 10 MG Tab PO SCH (10:04)
[2020-10-21] MEDS: LORazepam 1 MG Tab PO SCH ×2 (10:04→17:14)
[2020-10-21] MEDS: Dexamethasone 4 MG Tab PO SCH (10:05)
[2020-10-21] MEDS: Saccharomyces Boulardii (Probiotic) 250 MG Cap PO SCH (10:05)
[2020-10-21] MEDS: Enoxaparin 40 MG/0.4 ML Syringe SUBCUT SCH (10:06)
[2020-10-21] MEDS: cefTRIAXone 2 GM in Sodium Chloride 0.9% 100 ML IV SCH (11:18)
[2020-10-21] MEDS ORDERED: FLU VACC QS2020-21(6MOS UP)/PF 60 MCG/0.5 ML SYRINGE IM ONE (12:00)
[2020-10-21] MEDS: diphenhydrAMINE 50 MG Cap PO SCH (22:09)
[2020-10-22] MEDS: Insulin Glarg,Human.Rec.Analog 100 Unit/ML SUBCUT SCH (08:33)
[2020-10-22] MEDS: Enoxaparin 40 MG/0.4 ML Syringe SUBCUT SCH (08:36)
[2020-10-22] MEDS: Rosuvastatin 10 MG Tab PO SCH (08:36)
[2020-10-22] MEDS: Hydrochlorothiazide 25 MG Tab PO SCH (08:36)
[2020-10-22] MEDS: Aspirin 325 MG Tab.EC PO SCH (08:37)
[2020-10-22] MEDS: Saccharomyces Boulardii (Probiotic) 250 MG Cap PO SCH (08:37)
[2020-10-22] MEDS: Multivitamins,Therapeutic Tab PO SCH (08:37)
[2020-10-22] MEDS: amLODIPine 10 MG Tab PO SCH (08:38)
[2020-10-22] MEDS: LORazepam 1 MG Tab PO SCH (08:39)
[2020-10-22] MEDS: Metoprolol Tartrate 100 MG Tab PO SCH (08:40)
[2020-10-22] MEDS: Dexamethasone 4 MG Tab PO SCH (08:41)
--- NOTE | 2020-10-22 10:41 | PCM.DCSUM1 ---
Discharge Summary - Hospital Course HPI Initial Comments: This is a 55-year-old male who presents to us after being transferred from [facility] and is a direct admission. Patient reports that he had similar symptoms around [facility] and that they had resolved but then returned very rapidly. That time he was never tested for Covid-19. He reports 102 degree fever along with backaches and shortness of breath. He reports his is also Covid positive. In the [place] ER he is 87% on room air. Saturations are increased to 91% on 2 L. Temp was 100.7. Pulse 87. Respirations 22. Blood pressure 142/71. Labs were obtained in [place] showing a WBC of 7.5. Hemoglobin 16.5. Platelets are 168,000. Neutrophils 5.8. Glucose is 88. Sodium 138. Potassium was low at 3.4. Chloride was 97. CO2 was 26. Anion gap is 18. BUN is 13. Creatinine 1.0. Calcium is 8.8. Bilirubin 0.6. Alkaline phosphatase is 84. ALT is 91. AST is 81. Protein is 7.3. Albumin 4.0. EGFR is greater than 90. PT is 13.3. INR 1.0. Blood culture was obtained and is pending. Influenza a and B were both negative. COVID-19 screen is positive. Was given 1 g IV Rocephin and 500 mg azithromycin tablets. Is given 20 mEq potassium chloride. He is also given the 200 mg loading dose of remdesivir and a 6 mg dose of dexamethasone. He started on Lovenox 40 mg and was given a 1 L bolus. Chest x-ray is obtained showing "radiographic findings consistent with Covid pneumonia. Correlation is recommended." Has a history of type II DM, hypertension, sleep apnea with CPAP use. He is a former smoker. He is admitted for treatment of his acute respiratory failure with hypoxia and pneumonia due to COVID-19. Diagnosis: Stroke: No - Discharge Data Discharge Date: 10/22/20 (Admit date: 10/17/2020) Discharge Disposition: Home, Self-Care 01 Condition: Good - Referral to Home Health Primary Care Physician: PCP None - Discharge Diagnosis/Problem(s) (1) Pneumonia due to 2019 novel coronavirus SNOMED Code(s): 086483661221306437 ICD Code: U07.1 - COVID-19; J12.89 - OTHER VIRAL PNEUMONIA Status: Acute Priority: High Current Visit: Yes (2) Type II diabetes mellitus SNOMED Code(s): 89178767 ICD Code: E11.9 - TYPE 2 DIABETES MELLITUS WITHOUT COMPLICATIONS Status: Chronic Priority: Medium Current Visit: Yes Qualifiers: Diabetes mellitus longwall foreman insulin use: with longwall foreman use Diabetes mellitus complication status: without complication Qualified Code(s): E11.9 - Type 2 diabetes mellitus without complications; Z79.4 - superintendent terminal (current) use of insulin (3) FREIDA on CPAP SNOMED Code(s): 89899404 ICD Code: G47.33 - OBSTRUCTIVE SLEEP APNEA (ADULT) (PEDIATRIC); Z99.89 - DEPENDENCE ON OTHER ENABLING MACHINES AND DEVICES Status: Chronic Priority: Medium Current Visit: No (4) Hypertension SNOMED Code(s): 47409580 ICD Code: I10 - ESSENTIAL (PRIMARY) HYPERTENSION Status: Chronic Priority: Medium Current Visit: No Qualifiers: Hypertension type: unspecified Qualified Code(s): I10 - Essential (primary) hypertension (5) Hypoxia SNOMED Code(s): 958396227 ICD Code: R09.02 - HYPOXEMIA Status: Resolved Priority: High Current Visit: Yes (6) Hypokalemia SNOMED Code(s): 89245208 ICD Code: E87.6 - HYPOKALEMIA Status: Resolved Priority: High Current Visit: Yes (7) Anxiety SNOMED Code(s): 86568437 ICD Code: F41.9 - ANXIETY DISORDER, UNSPECIFIED Status: Chronic Priority: High Current Visit: Yes (8) GERD (gastroesophageal reflux disease) SNOMED Code(s): 742210789 ICD Code: K21.9 - GASTRO-ESOPHAGEAL REFLUX DISEASE WITHOUT ESOPHAGITIS Status: Chronic Priority: Medium Current Visit: No Qualifiers: Esophagitis presence: esophagitis presence not specified Qualified Code(s): K21.9 - Gastro-esophageal reflux disease without esophagitis - Patient Summary/Data Consults: Consultations 10/17/20 14:32 OT Evaluation and Treatment [CONS] Routine PT Evaluation and Treatment [CONS] Routine Respiratory Care Assess and Treatment [CONS] Routine 10/18/20 12:20 Consult to Industrial Economics Teacher [CONS] Routine 10/19/20 11:13 Consult to Physician [CONS] Routine Labs Pending at D/C: None Recommended Follow-up Testing/Procedures: Follow-up with primary care provider within 5-7 days of discharge, sooner if needed. -Recommend re-check CBC, CMP, Magnesium at that visit. -Recommend repeat CXR at that time as well. -Follow-up with outpatient psychiatry as directed. Hospital Course: Pastor was admitted to the floor on 10/17/20 as a direct admit from the [facility] for further COVID-19 treatment. He was started on 40mg Lovenox, 200mg Remdesivir, 6mg dexamethasone, 1gm rocephin, and 500mg azithromycin prior to transfer here. His potassium was noted to be low there and this was supplemented prior to transfer as well. He was requiring 6L on admission and this was weaned off prior to discharge. He completed 5 days of remdesivir treatment, as well as 3 days of azithromycin and 5 days of rocephin. He completed 5 days of dexamethasone prior to discharge. He was utilizing his IS and acapella frequently while here and instructed to continue this until symptoms resolve. While here he noted that he has had some increasing anxiety and has been taking his PRN Ativan quite frequently. Dr. Huntley, psychiatry, performed a telehealth visit and recommended scheduling 1mg ativan BID. Prescription was sent to his pharmacy at discharge. No other new prescriptions were sent at discharge as he completed COVID-19 treatment. He was on contact and airborne isolation while here. contracting specialist reports patient should remain isolated/quarantined until 10/28/20. He was directed to confirm this with his [place] COVID-19 embedded case manager. He is a diabetic and his home diabetic regimen was continued. He was instructed that he may see some higher blood glucose readings due to the steroid he was on. He was warned to seek medical care for blood sugars over 400. He was instructed to follow-up with his primary care provider within 5-7 days of discharge, sooner if needed. Recommend re-check CBC, CMP, magnesium, and CXR at that appointment. He was told to continue to utilize his home CPAP whenever napping or sleeping overnight. He was discharged home today. - Patient Instructions Diet: Diabetic Diet Activity: As Tolerated Driving: Do Not Drive (today ) Showering/Bathing: May Shower Notify Provider of: Fever, Increased Pain, Nausea and/or Vomiting Other/Special Instructions: Follow-up with primary care iam suárez 5-7 days of discharge. Follow-up with outpatient psychiatry as directed. You completed treatment for your covid-19 virus while here. No new medications for this. You saw Dr. Huntley and he changed your ativan dosing to 1mg twice a day scheduled. Be sure to take this new dosing. This has been sent to your pharmacy. Resume home medications as directed. Continue to check your blood sugars as per your prior routine. You may notice your surgars are higher due to the steroid you were recieving here. Continue to utilize your incentive spirometer (clear/blue device you inhale through) and acapella (green tube you blow through) up to 10 times an hour, until your symptoms resolve. Continue to prone as we discussed. Per our museum informatics specialist: You may come off of quarantine on October 28. You should confirm this date with your COVID-19 embedded case manager from the [facility]. Stay active. Continue to ambulate frequently. Should symptoms return or worsen contact your primary care provider or return to the Emergency Department. - Discharge Plan *PRESCRIPTION DRUG MONITORING PROGRAM REVIEWED*: No *COPY OF PRESCRIPTION DRUG MONITORING REPORT IN PATIENT ELBERT: No Prescriptions/Med Rec: LORazepam [Ativan] 1 mg PO BID@0900,1700 #40 tablet Home Medications: Home Meds Aspirin 325 mg PO DAILY 10/17/20 [History] Cetirizine HCl [Zyrtec] 25 mg PO BEDTIME 10/17/20 [History] Insulin Glarg,Human.Rec.Analog [Lantus] 40 - 60 units SQ BID 10/17/20 [History] L.acidoph,Paracasei, B.lactis [Probiotic] 1 tab PO DAILY 10/17/20 [History] Metoprolol Tartrate 100 mg PO BID 10/17/20 [History] Multivitamin 1 tab PO DAILY 10/17/20 [History] Pantoprazole [ProTONIX] 40 mg PO DAILY 10/17/20 [History] amLODIPine [Norvasc] 10 mg PO DAILY 10/17/20 [History] atorvaSTATin [Lipitor] 40 mg PO BEDTIME 10/17/20 [History] diphenhydrAMINE [Benadryl] 100 mg PO BEDTIME 10/17/20 [History] hydroCHLOROthiazide [Hydrochlorothiazide] 25 mg PO DAILY 10/17/20 [History] metFORMIN [Glucophage XR] 1,000 mg PO BID 10/17/20 [History] LORazepam [Ativan] 1 mg PO BID@0900,1700 #40 tablet 10/22/20 [Rx] Oxygen Therapy Mode: Room Air Patient Handouts: Insulin Storage and Care, COVID-19 Frequently Asked Questions, COVID-19, How to Use an Incentive Spirometer, Diabetes Mellitus and Sick Day Management, Sepsis, Diagnosis, Adult, Managing Anxiety, Adult Referrals: Efraín Huntley MD [Physician] - (Schedule a follow up appointment for 2-3 weeks after discharge. Phone number for [facility] to schedule appointment is [phone] or [phone].) Rio Gooden MD [Physician] - 10/28/20 10:00 am (Hospital follow-up appointment. Come to the east side of the building and bring your ID and insurance cards.) - Discharge Summary/Plan Comment DC Time >30 min.: Yes (45 mins ) - General Info Date of Service: 10/22/20 Admission Dx/Problem (Free Text: Admission Diagnosis/Problem Admission Diagnosis/Problem Hypoxia Functional Status: Reports: Pain Controlled, Tolerating Diet, Ambulating, Urinating, Incentive Spirometry, Other (Acapella ). Denies: New Symptoms - Review of Systems General: Reports: No Symptoms. Denies: Fever, Weakness, Fatigue, Malaise, Chills HEENT: Reports: No Symptoms. Denies: Sore Throat Pulmonary: Reports: Cough. Denies: Shortness of Breath, Sputum, Wheezing Cardiovascular: Reports: Dyspnea on Exertion. Denies: Chest Pain, Palpitations, Edema Gastrointestinal: Reports: No Symptoms. Denies: Abdominal Pain, Constipation, Diarrhea, Nausea, Vomiting Genitourinary: Reports: No Symptoms. Denies: Pain Musculoskeletal: Reports: No Symptoms Skin: Reports: No Symptoms. Denies: Cyanosis Neurological: Reports: No Symptoms. Denies: Confusion, Numbness, Tingling, Difficulty Walking, Weakness, Gait Disturbance Psychiatric: Reports: No Symptoms - Patient Data Vitals - Most Recent: Last Vital Signs Temp 98.2 F 10/22/20 07:36 Pulse 65 10/22/20 08:40 Resp 16 10/22/20 07:36 BP 131/79 10/22/20 08:40 Pulse Ox 94 L 10/22/20 08:22 Weight - Most Recent: 260 lb 1.6 oz I&O - Last 24 hours: Intake & Output 10/21/20 10/22/20 10/22/20 22:59 06:59 14:59 Intake Total 3180 800 Output Total 2000 2500 Balance 1180 -1700 Lab Results - Last 24 hrs: Laboratory Results - last 24 hr 10/21/20 10/21/20 10/21/20 Range/Units 11:20 17:15 21:52 WBC (4.23-9.07) K/mm3 RBC (4.63-6.08) M/mm3 Hgb (13.7-17.5) gm/dl Hct (40.1-51.0) % MCV (79.0-92.2) fl MCH (25.7-32.2) pg MCHC (32.2-35.5) g/dl RDW Std Deviation (35.1-43.9) fL Plt Count (163-337) K/mm3 MPV (9.4-12.3) fl Neut % (Auto) (34.0-67.9) % Lymph % (Auto) (21.8-53.1) % Dickey % (Auto) (5.3-12.2) % Eos % (Auto) (0.8-7.0) Baso % (Auto) (0.1-1.2) % Neut # (Auto) (1.78-5.38) K/mm3 Lymph # (Auto) (1.32-3.57) K/mm3 Dickey # (Auto) (0.30-0.82) K/mm3 Eos # (Auto) (0.04-0.54) K/mm3 Baso # (Auto) (0.01-0.08) K/mm3 Manual Slide Review D-Dimer, Quantitative (0.19-0.50) mg/L Sodium (136-145) mEq/L Potassium (3.5-5.1) mEq/L Chloride (98-107) mEq/L Carbon Dioxide (21-32) mEq/L Anion Gap (5-15) BUN (7-18) mg/dL Creatinine (0.7-1.3) mg/dL Est Cr Clr Drug Dosing mL/min Estimated GFR (MDRD) (>60) mL/min BUN/Creatinine Ratio (14-18) Glucose (74-106) mg/dL POC Glucose 135 H 347 H 283 H (70-105) mg/dL Calcium (8.5-10.1) mg/dL Magnesium (1.8-2.4) mg/dl Total Bilirubin (0.2-1.0) mg/dL AST (15-37) U/L ALT (16-63) U/L Alkaline Phosphatase (46-116) U/L Total Protein (6.4-8.2) g/dl Albumin (3.4-5.0) g/dl Globulin gm/dL Albumin/Globulin Ratio (1-2) 10/22/20 10/22/20 10/22/20 Range/Units 04:49 04:49 04:49 WBC 9.38 H (4.23-9.07) K/mm3 RBC 5.95 (4.63-6.08) M/mm3 Hgb 16.6 (13.7-17.5) gm/dl Hct 49.3 (40.1-51.0) % MCV 82.9 (79.0-92.2) fl MCH 27.9 (25.7-32.2) pg MCHC 33.7 (32.2-35.5) g/dl RDW Std Deviation 40.4 (35.1-43.9) fL Plt Count 291 (163-337) K/mm3 MPV 9.9 (9.4-12.3) fl Neut % (Auto) 72.4 H (34.0-67.9) % Lymph % (Auto) 15.9 L (21.8-53.1) % Dickey % (Auto) 11.0 (5.3-12.2) % Eos % (Auto) 0.1 L (0.8-7.0) Baso % (Auto) 0.1 (0.1-1.2) % Neut # (Auto) 6.79 H (1.78-5.38) K/mm3 Lymph # (Auto) 1.49 (1.32-3.57) K/mm3 Dickey # (Auto) 1.03 H (0.30-0.82) K/mm3 Eos # (Auto) 0.01 L (0.04-0.54) K/mm3 Baso # (Auto) 0.01 (0.01-0.08) K/mm3 Manual Slide Review Normal smear D-Dimer, Quantitative 0.37 (0.19-0.50) mg/L Sodium 138 (136-145) mEq/L Potassium 3.8 (3.5-5.1) mEq/L Chloride 100 (98-107) mEq/L Carbon Dioxide 29 (21-32) mEq/L Anion Gap 12.8 (5-15) BUN 19 H (7-18) mg/dL Creatinine 1.1 (0.7-1.3) mg/dL Est Cr Clr Drug Dosing 78.91 mL/min Estimated GFR (MDRD) > 60 (>60) mL/min BUN/Creatinine Ratio 17.3 (14-18) Glucose 231 H (74-106) mg/dL POC Glucose (70-105) mg/dL Calcium 9.1 (8.5-10.1) mg/dL Magnesium 2.0 (1.8-2.4) mg/dl Total Bilirubin 0.5 (0.2-1.0) mg/dL AST 69 H (15-37) U/L ALT 164 H (16-63) U/L Alkaline Phosphatase 71 (46-116) U/L Total Protein 6.8 (6.4-8.2) g/dl Albumin 2.9 L (3.4-5.0) g/dl Globulin 3.9 gm/dL Albumin/Globulin Ratio 0.7 L (1-2) 10/22/20 Range/Units 05:59 WBC (4.23-9.07) K/mm3 RBC (4.63-6.08) M/mm3 Hgb (13.7-17.5) gm/dl Hct (40.1-51.0) % MCV (79.0-92.2) fl MCH (25.7-32.2) pg MCHC (32.2-35.5) g/dl RDW Std Deviation (35.1-43.9) fL Plt Count (163-337) K/mm3 MPV (9.4-12.3) fl Neut % (Auto) (34.0-67.9) % Lymph % (Auto) (21.8-53.1) % Dickey % (Auto) (5.3-12.2) % Eos % (Auto) (0.8-7.0) Baso % (Auto) (0.1-1.2) % Neut # (Auto) (1.78-5.38) K/mm3 Lymph # (Auto) (1.32-3.57) K/mm3 Dickey # (Auto) (0.30-0.82) K/mm3 Eos # (Auto) (0.04-0.54) K/mm3 Baso # (Auto) (0.01-0.08) K/mm3 Manual Slide Review D-Dimer, Quantitative (0.19-0.50) mg/L Sodium (136-145) mEq/L Potassium (3.5-5.1) mEq/L Chloride (98-107) mEq/L Carbon Dioxide (21-32) mEq/L Anion Gap (5-15) BUN (7-18) mg/dL Creatinine (0.7-1.3) mg/dL Est Cr Clr Drug Dosing mL/min Estimated GFR (MDRD) (>60) mL/min BUN/Creatinine Ratio (14-18) Glucose (74-106) mg/dL POC Glucose 228 H (70-105) mg/dL Calcium (8.5-10.1) mg/dL Magnesium (1.8-2.4) mg/dl Total Bilirubin (0.2-1.0) mg/dL AST (15-37) U/L ALT (16-63) U/L Alkaline Phosphatase (46-116) U/L Total Protein (6.4-8.2) g/dl Albumin (3.4-5.0) g/dl Globulin gm/dL Albumin/Globulin Ratio (1-2) Med Orders - Current: Current Medications Acetaminophen (Tylenol) 650 mg PO Q4H PRN PRN Reason: Pain (Mild 1-3)/fever Last Admin: 10/19/20 09:02 Dose: 650 mg Documented by: Albuterol (Proventil Hfa) 0 gm INH Q2H PRN PRN Reason: Shortness of Breath Alogliptin Benzoate (Alogliptin) 12.5 mg PO DAILY MICHELE Last Admin: 10/22/20 08:37 Dose: 12.5 mg Documented by: Amlodipine Besylate (Norvasc) 10 mg PO DAILY [facility] Last Admin: 10/22/20 08:38 Dose: 10 mg Documented by: Aspirin (Ecotrin) 325 mg PO DAILY [facility] Last Admin: 10/22/20 08:37 Dose: 325 mg Documented by: Dexamethasone (Dexamethasone) 6 mg PO DAILY [facility] Stop: 10/26/20 09:01 Last Admin: 10/22/20 08:41 Dose: 6 mg Documented by: Diphenhydramine HCl (Benadryl) 100 mg PO BEDTIME [facility] Last Admin: 10/21/20 22:09 Dose: 100 mg Documented by: Enoxaparin Sodium (Lovenox) 40 mg SUBCUT DAILY [facility] Last Admin: 10/22/20 08:36 Dose: 40 mg Documented by: Famotidine (Pepcid) 20 mg PO BID [facility] Last Admin: 10/21/20 22:08 Dose: 20 mg Documented by: Hydrochlorothiazide (Hydrochlorothiazide) 25 mg PO DAILY [facility] Last Admin: 10/22/20 08:36 Dose: 25 mg Documented by: Insulin Glargine (Lantus) 40 unit SUBCUT BID [facility] Last Admin: 10/22/20 08:33 Dose: 40 units Documented by: Insulin Human Lispro (Humalog) 0 unit SUBCUT QIDACANDBED [facility]; Protocol Last Admin: 10/22/20 08:35 Dose: 6 units Documented by: Lorazepam (Ativan) 1 mg PO BID@0900,1700 [facility] Last Admin: 10/22/20 08:39 Dose: 1 mg Documented by: Metoprolol Tartrate (Lopressor) 100 mg PO BID [facility] Last Admin: 10/22/20 08:40 Dose: 100 mg Documented by: Multivitamins (Thera) 1 each PO DAILY [facility] Last Admin: 10/22/20 08:37 Dose: 1 each Documented by: Ondansetron HCl (Zofran) 4 mg IV Q6H PRN PRN Reason: Nausea/Vomiting Rosuvastatin Calcium (Crestor) 10 mg PO DAILY [facility] Last Admin: 10/22/20 08:36 Dose: 10 mg Documented by: Saccharomyces Boulardii (Florastor) 250 mg PO DAILY [facility] Last Admin: 10/22/20 08:37 Dose: 250 mg Documented by: Discontinued Medications Azithromycin (Zithromax) 500 mg PO DAILY@1130 [facility] Stop: 10/19/20 11:31 Last Admin: 10/19/20 11:24 Dose: 500 mg Documented by: Remdesivir 100 mg/ Sodium (Chloride) 100 mls @ 100 mls/hr IV DAILY [facility] Stop: 10/21/20 09:59 Last Admin: 10/21/20 10:01 Dose: 100 mls/hr Documented by: Ceftriaxone Sodium 2 gm/ (Sodium Chloride) 100 mls @ 200 mls/hr IV Q24H [facility] Stop: 10/21/20 11:59 Last Admin: 10/21/20 11:18 Dose: 200 mls/hr Documented by: Influenza Virus Vaccine (Pharmacy To Dose - Influenza Vaccine) 1 each IM ONETIME ONE Stop: 10/17/20 15:58 Influenza Virus Vaccine (Fluzone Quad Syringe) 60 mcg IM .ONCE ONE Stop: 10/21/20 12:01 Insulin Glargine (Lantus) 20 unit SUBCUT BID [facility] Last Admin: 10/18/20 08:27 Dose: 20 units Documented by: Insulin Glargine (Lantus) 30 unit SUBCUT BID [facility] Last Admin: 10/19/20 08:09 Dose: 30 units Documented by: Insulin Human Lispro (Humalog) 0 unit SUBCUT QIDACANDBED [facility]; Protocol Last Admin: 10/20/20 08:50 Dose: Not Given Documented by: Lorazepam (Ativan) 1 mg PO QID PRN PRN Reason: Anxiety Lorazepam (Ativan) 1 mg PO ONETIME ONE Stop: 10/19/20 11:14 Last Admin: 10/19/20 11:24 Dose: 1 mg Documented by: Non-Formulary Medication (Cetirizine Hcl [Zyrtec]) 25 mg PO BEDTIME [facility] Last Admin: 10/18/20 11:23 Dose: Not Given Documented by: - Exam Quality Assessment: Reports: DVT Prophylaxis. Denies: Supplemental Oxygen, Urine Catheter General: Reports: Alert, Oriented, Cooperative, No Acute Distress HEENT: Reports: Pupils Equal, Pupils Reactive, Mucous Membr. Moist/[place]: Reports: Supple, Trachea Midline Lungs: Reports: Normal Respiratory Effort, Decreased Breath Sounds. Denies: Crackles, Rhonchi, Wheezing Cardiovascular: Reports: Regular Rate, Regular Rhythm GI/Abdominal Exam: Normal Bowel Sounds, Soft, Non-Tender, No Distention (Male) Exam: Deferred Rectal (Males) Exam: Deferred Back Exam: Reports: Normal Inspection, Full Range of Motion Extremities: Normal Inspection, Normal Range of Motion, Non-Tender, No Pedal Edema, Normal Capillary Refill Skin: Reports: Warm, Dry, Intact Neurological: Reports: No New Focal Deficit Psy/Mental Status: Reports: Alert, Normal Affect, Normal Mood
[2020-10-22] MEDS: Famotidine 20 MG Tab PO SCH (13:26)
== END 2020-10-22 13:50 | disposition home or self-care (01) | DRG 177 ==
LOC: JD.MS 13:49
PROVIDERS: ADMIT Pediatrics; ATTEND Pediatrics
PROC: XW033E5 Introduction of Remdesivir Anti-infective into Peripheral Vein, Percutaneous Approach, New Technology Group 5 (ICD-10-PCS; principal; 2020-10-17)
PROC: 8E0ZXY6 Isolation (ICD-10-PCS; 2020-10-17)
DX: U07.1 COVID-19 (principal); J12.89 Other viral pneumonia; E11.9 Type 2 diabetes mellitus without complications; G47.33 Obstructive sleep apnea (adult) (pediatric); I10 Essential (primary) hypertension; E87.6 Hypokalemia; F41.9 Anxiety disorder, unspecified; K21.9 Gastro-esophageal reflux disease without esophagitis; J30.9 Allergic rhinitis, unspecified; Z79.4 Long term (current) use of insulin; Z99.89 Dependence on other enabling machines and devices; Z79.82 Long term (current) use of aspirin; Z79.899 Other long term (current) drug therapy; Z87.891 Personal history of nicotine dependence; Z99.81 Dependence on supplemental oxygen
CPT/HCPCS: 36415; 80053; 82306; 82728; 82962; 83036; 83615; 83735; 83880; 84100; 84145; 84484; 85025; 85379; 85384; 90686; 93005; 94667; 94668; 94761; 94762; 97161-GP; 97165-GO; 97530-GO; A9270-GY; G0008; J0696; J1650; J1815-GY; J7050; J8540; Q3014